=== PATIENT | male | born 1955 | race Caucasian/White ===

== ENCOUNTER 2023-01-22 08:35 | Inpatient (IN) | payer OTHER ==
[2023-01-22] MEDS ORDERED: Midazolam In 0.9 % NaCl/PF 100 MG in Premix Bag 1 BAG IVPB SCH ×2 (09:00→10:45)
[2023-01-22] MEDS ORDERED: NOREPINEPHRINE 8 MG/250 ML-D5W 250 ML IVPB PRN (09:00)
[2023-01-22 09:02] LABS: #Basophils 0.1 10x3/uL (0.0-0.2); #Monocytes 0.4 10x3/uL (0.0-1.1); #Neutrophils 15.2 10x3/uL (1.5-8.4); %Basophils 0.6 % (0.0-2.0); %Eosinophils 0.2 % (0.0-6.0); %Lymphocytes 3.9 % (18.0-47.0); %Monocytes 2.2 % (0.0-10.0); %Neutrophils 91.1 % (40.0-75.0); Hemoglobin 11.3 g/dL (13.5-17.5); Mean Corpuscular HGB CONC 26.8 g/dL (32.0-36.0); Mean Corpuscular Hemoglobin 22.2 pg (27.0-33.0); Mean Corpuscular Volume 82.7 fl (81.2-95.1); Mean Platelet Volume 10.1 fl (7.4-10.4); Platelet Count 340 10x3/uL (150-450); White Blood Cell (WBC) Count 16.7 10x3/uL (3.5-10.5)
[2023-01-22 09:12] LABS: INR-International Normal Ratio 1.7; PTT 33.6 sec (22.0-33.0); Prothrombin Time 17.8 sec (9.5-12.1)
[2023-01-22 09:18] LABS: ALT (SGPT) Less than 7 U/L (8-55); AST (SGOT) 16 U/L (5-34); Alkaline Phosphatase 98 U/L (40-110); Anion Gap 13 mmol/L (10-20); BUN (Urea Nitrogen) 31 mg/dL (8.4-25.7); Bilirubin, Total 0.4 mg/dL (0.2-1.2); Calc. Creatinine Clearance 0 mL/min (70-130); Calcium 8.6 mg/dL (7.8-10.44); Carbon Dioxide 28 mmol/L (23-31); Chloride 106 mmol/L (98-107); Estimated GFR 23; Globulin 3.1 g/dL (2.4-3.5); Glucose 125 mg/dL (80-115); Potassium 5.9 mmol/L (3.5-5.1); Protein, Total 7.1 g/dL (5.8-8.1); Sodium 141 mmol/L (136-145)
[2023-01-22 09:31] LABS: ALV-art Gradient 577.125 mmHg (0-20); Actual Bicarbonate (HCO3a) 25.1 mEq/L (22-28); Base Excess (BEa) -1.9 mEq/L (-2.0 to +3.0); CO2 Tension 52.7 mmHg (35.0-45.0); Calcium, Ionized (arterial) 1.11 mmol/L (1.12-1.30); Carboxyhemoglobin (COHb) 1.2 gm% (0.0-3.0); Hematocrit-ABG 33 % (42.0-52.0); Hemoglobin (Hb) 11.2 g/dL (14.0-18.0); Potassium - ABG Lab 5.58 mmol/L (3.70-5.30); Puncture Site LRA; pH, Arterial 7.295 (7.35-7.45)
[2023-01-22 09:42] LABS: Hypochromia SLIGHT = 6-15 cells (100X) (0-5/hpf); Ovalocytes SLIGHT = 2-5 cells (100X) (0-1/hpf); Polychromasia SLIGHT = 2-3 cells (100X) (0-2/hpf)
[2023-01-22 09:43] LABS: Platelet Adequacy Comment Appears Adequate
[2023-01-22] MEDS ORDERED: DISCONTINUE PREVIOUS NARCOTIC PAIN MEDICATIONS AND BENZODIAZEPINES FS SCH (10:15)
[2023-01-22] MEDS ORDERED: Morphine 2 MG/ML VIAL SLOW IVP PRN (10:15)
[2023-01-22] MEDS ORDERED: Propofol 1,000 MG/100 ML VIAL IV PRN (10:15)
[2023-01-22] MEDS ORDERED: Propofol BOLUS 1,000 MG/100 ML VIAL IV PRN (10:15)
[2023-01-22] MEDS ORDERED: Fentanyl BOLUS 250 ML IVPB PRN (10:15)
[2023-01-22] MEDS ORDERED: Glucagon 1 MG/ML KIT IM PRN (10:30)
[2023-01-22] MEDS ORDERED: Piperacillin/Tazobactam 3.375 GM in Sodium Chloride 0.9% 100 ML IVPB SCH (10:30)
[2023-01-22] MEDS ORDERED: Dextrose 5% in Water 1,000 ML IV PRN (10:30)
[2023-01-22] MEDS: Ipratropium Bromide 2.5 ml Neb NEB SCH ×4 (10:30→23:00)
[2023-01-22] MEDS ORDERED: Dextrose 50% Abboject 50 ML SYRINGE IVP PRN (10:30)
[2023-01-22] MEDS ORDERED: LOKELMA 10 GM PACKET PO SCH (11:30)
[2023-01-22] MEDS: methylPREDNISolone Sod Succ 40 MG VIAL IVP SCH ×2 (11:41→17:27)
[2023-01-22] MEDS: Bumetanide 1 MG/4 ML VIAL IVP SCH (14:21)
[2023-01-22] MEDS: Piperacillin/Tazobactam 3.375 GM in Sodium Chloride 0.9% 100 ML IVPB SCH ×2 (14:23→22:02)
[2023-01-22] MEDS: Warfarin Sodium 10 MG TAB PO SCH (16:43)
[2023-01-22] MEDS: HumaLOG 300 UNITS/3 ML VIAL SC PRN (22:01)
[2023-01-23] MEDS: methylPREDNISolone Sod Succ 40 MG VIAL IVP SCH ×4 (00:04→18:34)
[2023-01-23] MEDS: FENTANYL 2,000MCG/100-0.9%NACL 100 ML IVPB SCH (01:34)
[2023-01-23 03:31] LABS: INR-International Normal Ratio 1.8; Prothrombin Time 19.3 sec (9.5-12.1)
[2023-01-23 03:38] LABS: ALT (SGPT) Less than 7 U/L (8-55); AST (SGOT) 11 U/L (5-34); Albumin 3.1 g/dL (3.4-4.8); Alkaline Phosphatase 70 U/L (40-110); Anion Gap 14 mmol/L (10-20); BUN (Urea Nitrogen) 44 mg/dL (8.4-25.7); Bilirubin, Total 0.3 mg/dL (0.2-1.2); Calc. Creatinine Clearance 41 mL/min (70-130); Calcium 8.5 mg/dL (7.8-10.44); Carbon Dioxide 26 mmol/L (23-31); Chloride 105 mmol/L (98-107); Estimated GFR 18; Globulin 2.5 g/dL (2.4-3.5); Glucose 156 mg/dL (80-115); Potassium 5.4 mmol/L (3.5-5.1); Protein, Total 5.6 g/dL (5.8-8.1); Sodium 140 mmol/L (136-145)
[2023-01-23] MEDS: Ipratropium Bromide 2.5 ml Neb NEB SCH ×6 (03:50→23:20)
[2023-01-23 04:27] LABS: Actual Bicarbonate (HCO3a) 26.4 mEq/L (22-28); Base Excess (BEa) -0.1 mEq/L (-2.0 to +3.0); CO2 Tension 51.8 mmHg (35.0-45.0); Calcium, Ionized (arterial) 1.12 mmol/L (1.12-1.30); Carboxyhemoglobin (COHb) 0.2 gm% (0.0-3.0); Hematocrit-ABG 31 % (42.0-52.0); Hemoglobin (Hb) 10.4 g/dL (14.0-18.0); O2 Tension (PaO2), arterial 63.2 mmHg (> 80.0); Potassium - ABG Lab 5.36 mmol/L (3.70-5.30); Puncture Site RRA; pH, Arterial 7.325 (7.35-7.45)
[2023-01-23 04:32] LABS: #Eosinphils 0.2 10x3/uL (0.0-0.5); #Monocytes 0.2 10x3/uL (0.0-1.1); #Neutrophils 6.4 10x3/uL (1.5-8.4); %Eosinophils 2.3 % (0.0-6.0); %Lymphocytes 4.6 % (18.0-47.0); %Monocytes 2.5 % (0.0-10.0); Hemoglobin 9.3 g/dL (13.5-17.5); Mean Corpuscular HGB CONC 28.1 g/dL (32.0-36.0); Mean Corpuscular Volume 78.3 fl (81.2-95.1); Mean Platelet Volume 10.2 fl (7.4-10.4); Platelet Count 235 10x3/uL (150-450); RBC Distribution Width 18.2 % (11.5-14.5); Red Blood Cell (RBC) Count 4.23 10x6/uL (4.32-5.72); White Blood Cell (WBC) Count 7.1 10x3/uL (3.5-10.5)
[2023-01-23] MEDS ORDERED: Calcium Gluconate 4.6 MEQ in Sodium Chloride 0.9% 100 ML IVPB SCH (05:15)
[2023-01-23] MEDS: Piperacillin/Tazobactam 3.375 GM in Sodium Chloride 0.9% 100 ML IVPB SCH ×2 (06:01→15:03)
[2023-01-23] MEDS: Bumetanide 1 MG/4 ML VIAL IVP SCH ×2 (06:08→13:40)
[2023-01-23 10:10] LABS: Anion Gap 15 mmol/L (10-20); BUN (Urea Nitrogen) 49 mg/dL (8.4-25.7); Calc. Creatinine Clearance 40 mL/min (70-130); Calcium 8.8 mg/dL (7.8-10.44); Carbon Dioxide 25 mmol/L (23-31); Chloride 105 mmol/L (98-107); Estimated GFR 17; Glucose 154 mg/dL (80-115); Potassium 5.3 mmol/L (3.5-5.1); Sodium 140 mmol/L (136-145)
[2023-01-23] MEDS: Albumin 25% 25 GM/100 ML BOT IVPB SCH ×2 (13:40→20:12)
[2023-01-23] MEDS: Metoprolol Tartrate 5 MG/5 ML VIAL IVP PRN (15:02)
[2023-01-23 15:48] LABS: Magnesium 2.3 mg/dL (1.6-2.6)
[2023-01-23] MEDS: dilTIAZem 125 MG in Sodium Chloride 0.9% 100 ML IVPB SCH (16:15)
[2023-01-23 16:17] LABS: Anion Gap 15 mmol/L (10-20); BUN (Urea Nitrogen) 55 mg/dL (8.4-25.7); Calc. Creatinine Clearance 37 mL/min (70-130); Calcium 8.6 mg/dL (7.8-10.44); Carbon Dioxide 26 mmol/L (23-31); Chloride 104 mmol/L (98-107); Estimated GFR 15; Glucose 166 mg/dL (80-115); Sodium 140 mmol/L (136-145)
[2023-01-23] MEDS ORDERED: Acetaminophen 500 MG TAB PER TUBE SCH (17:15)
[2023-01-23] MEDS ORDERED: VANCOMYCIN 2 GRAM/400 ML BAG 2 GM in Premix Bag 1 BAG IVPB SCH (17:30)
[2023-01-23] MEDS ORDERED: Vancomycin HCl 1 GM in Sodium Chloride 0.9% 250 ML 250 ML IVPB SCH (17:30)
[2023-01-23] MEDS ORDERED: Vancomycin Dose by Levels Sliding Scale (Wt > 99) FS SCH (17:30)
[2023-01-23] MEDS: Warfarin Sodium 10 MG TAB PO SCH (17:31)
[2023-01-23] MEDS: HumaLOG 300 UNITS/3 ML VIAL SC PRN ×2 (17:32→22:49)
[2023-01-23] MEDS ORDERED: Meropenem 1 GM in Sodium Chloride 0.9% 100 ML IVPB SCH ×2 (20:00→22:00)
[2023-01-23] MEDS ORDERED: Meropenem 1 GM VIAL ONE (20:12)
[2023-01-24] MEDS: methylPREDNISolone Sod Succ 40 MG VIAL IVP SCH ×4 (00:59→17:22)
[2023-01-24] MEDS: Albumin 25% 25 GM/100 ML BOT IVPB SCH ×4 (01:00→17:22)
[2023-01-24] MEDS: Ipratropium Bromide 2.5 ml Neb NEB SCH ×6 (03:15→22:25)
[2023-01-24] MEDS: FENTANYL 2,000MCG/100-0.9%NACL 100 ML IVPB SCH (03:25)
[2023-01-24 04:03] LABS: #Monocytes 0.2 10x3/uL (0.0-1.1); #Neutrophils 7.3 10x3/uL (1.5-8.4); %Lymphocytes 2.8 % (18.0-47.0); %Monocytes 2.3 % (0.0-10.0); %Neutrophils 94.5 % (40.0-75.0); Mean Corpuscular HGB CONC 29.3 g/dL (32.0-36.0); Mean Corpuscular Hemoglobin 22.2 pg (27.0-33.0); Mean Corpuscular Volume 75.8 fl (81.2-95.1); Platelet Count 239 10x3/uL (150-450); RBC Distribution Width 18.4 % (11.5-14.5); Red Blood Cell (RBC) Count 4.05 10x6/uL (4.32-5.72); White Blood Cell (WBC) Count 7.8 10x3/uL (3.5-10.5)
[2023-01-24 04:08] LABS: INR-International Normal Ratio 3.5; Prothrombin Time 37.1 sec (9.5-12.1)
[2023-01-24 04:11] LABS: Anion Gap 19 mmol/L (10-20); BUN (Urea Nitrogen) 61 mg/dL (8.4-25.7); Calc. Creatinine Clearance 34 mL/min (70-130); Calcium 8.8 mg/dL (7.8-10.44); Carbon Dioxide 23 mmol/L (23-31); Chloride 107 mmol/L (98-107); Estimated GFR 14; Glucose 163 mg/dL (80-115); Iron 8 ug/dL (65-175); Potassium 4.9 mmol/L (3.5-5.1); Sodium 144 mmol/L (136-145)
[2023-01-24] MEDS: Meropenem 500 MG in Sodium Chloride 0.9% 100 ML IVPB SCH ×2 (04:17→16:39)
[2023-01-24] MEDS: Bumetanide 1 MG/4 ML VIAL IVP SCH ×2 (05:29→13:21)
[2023-01-24] MEDS ORDERED: Dexmedetomidine In 0.9 % NaCl 100 ML ONE (08:33)
[2023-01-24] MEDS ORDERED: Pantoprazole 40 MG VIAL ONE (08:33)
[2023-01-24] MEDS: Pantoprazole 40 MG VIAL IVP SCH (08:35)
[2023-01-24] MEDS: Dexmedetomidine In 0.9 % NaCl 400 MCG in Premix Bag 1 BAG IVPB SCH ×4 (08:35→22:37)
[2023-01-24] MEDS: Metoprolol Tartrate 5 MG/5 ML VIAL IVP PRN ×2 (13:21→20:53)
[2023-01-24] MEDS ORDERED: Iron, Sodium Ferric Gluconate 250 MG in Sodium Chloride 0.9% 250 ML 250 ML IVPB SCH (14:15)
[2023-01-24] MEDS ORDERED: Warfarin Sodium 5 MG TAB PO SCH (17:00)
[2023-01-24 20:58] LABS: Actual Bicarbonate (HCO3a) 26.5 mEq/L (22-28); Base Excess (BEa) 0.1 mEq/L (-2.0 to +3.0); CO2 Tension 51.2 mmHg (35.0-45.0); Calcium, Ionized (arterial) 1.11 mmol/L (1.12-1.30); Carboxyhemoglobin (COHb) 0.2 gm% (0.0-3.0); Hematocrit-ABG 33 % (42.0-52.0); Hemoglobin (Hb) 11.1 g/dL (14.0-18.0); O2 Tension (PaO2), arterial 60.8 mmHg (> 80.0); Potassium - ABG Lab 4.98 mmol/L (3.70-5.30); Puncture Site RRA; pH, Arterial 7.332 (7.35-7.45)
[2023-01-24] MEDS: HumaLOG 300 UNITS/3 ML VIAL SC PRN (22:43)
[2023-01-24] MEDS ORDERED: Labetalol HCl 100 MG/20 ML VIAL ONE (23:20)
[2023-01-24] MEDS ORDERED: Nitroglycerin 2% Ointment 1 INCH/1 GM Packet ONE (23:20)
[2023-01-24] MEDS ORDERED: Nitroglycerin 2% Ointment 1 INCH/1 GM Packet TOP SCH (23:30)
[2023-01-24] MEDS ORDERED: Labetalol HCl 100 MG/20 ML VIAL SLOW IVP SCH (23:30)
[2023-01-25] MEDS: methylPREDNISolone Sod Succ 40 MG VIAL IVP SCH ×5 (00:31→23:19)
[2023-01-25] MEDS: Albumin 25% 25 GM/100 ML BOT IVPB SCH ×2 (00:31→05:38)
[2023-01-25] MEDS: Ipratropium Bromide 2.5 ml Neb NEB SCH ×6 (02:50→23:27)
[2023-01-25] MEDS: Dexmedetomidine In 0.9 % NaCl 400 MCG in Premix Bag 1 BAG IVPB SCH ×7 (03:00→21:26)
[2023-01-25] MEDS: Labetalol HCl 100 MG/20 ML VIAL SLOW IVP PRN (03:39)
[2023-01-25] MEDS: Lorazepam 2 MG/ML VIAL SLOW IVP PRN ×3 (03:39→23:11)
[2023-01-25 05:02] LABS: Anion Gap 17 mmol/L (10-20); BUN (Urea Nitrogen) 75 mg/dL (8.4-25.7); Calc. Creatinine Clearance 36 mL/min (70-130); Calcium 8.8 mg/dL (7.8-10.44); Carbon Dioxide 27 mmol/L (23-31); Chloride 106 mmol/L (98-107); Estimated GFR 16; Glucose 184 mg/dL (80-115); Potassium 4.8 mmol/L (3.5-5.1); Sodium 145 mmol/L (136-145)
[2023-01-25 05:08] LABS: INR-International Normal Ratio 5.2; Prothrombin Time 54.7 sec (9.5-12.1)
[2023-01-25 05:09] LABS: Actual Bicarbonate (HCO3a) 25.2 mEq/L (22-28); Base Excess (BEa) -0.5 mEq/L (-2.0 to +3.0); CO2 Tension 45.8 mmHg (35.0-45.0); Carboxyhemoglobin (COHb) 0.1 gm% (0.0-3.0); Hematocrit-ABG 33 % (42.0-52.0); Hemoglobin (Hb) 11.3 g/dL (14.0-18.0); O2 Tension (PaO2), arterial 85.9 mmHg (> 80.0); Potassium - ABG Lab 4.71 mmol/L (3.70-5.30); Puncture Site RRA; pH, Arterial 7.359 (7.35-7.45)
[2023-01-25 05:09] LABS: #Monocytes 0.2 10x3/uL (0.0-1.1); #Neutrophils 7.7 10x3/uL (1.5-8.4); %Basophils 0.1 % (0.0-2.0); %Lymphocytes 1.6 % (18.0-47.0); %Monocytes 2.6 % (0.0-10.0); %Neutrophils 94.6 % (40.0-75.0); Hemoglobin 10.2 g/dL (13.5-17.5); Mean Corpuscular HGB CONC 28.5 g/dL (32.0-36.0); Mean Corpuscular Hemoglobin 22.1 pg (27.0-33.0); Mean Corpuscular Volume 77.7 fl (81.2-95.1); Mean Platelet Volume 10.4 fl (7.4-10.4); Platelet Count 240 10x3/uL (150-450); RBC Distribution Width 18.6 % (11.5-14.5); Red Blood Cell (RBC) Count 4.61 10x6/uL (4.32-5.72); White Blood Cell (WBC) Count 8.1 10x3/uL (3.5-10.5)
[2023-01-25] MEDS ORDERED: cloNIDine 0.3mg/24 Hour PATCH TD SCH (05:15)
[2023-01-25] MEDS: Bumetanide 1 MG/4 ML VIAL IVP SCH ×2 (05:38→13:58)
[2023-01-25] MEDS: Meropenem 500 MG in Sodium Chloride 0.9% 100 ML IVPB SCH ×2 (05:38→16:36)
[2023-01-25] MEDS ORDERED: Labetalol HCl 100 MG/20 ML VIAL SLOW IVP SCH (07:15)
[2023-01-25] MEDS: dilTIAZem 125 MG in Sodium Chloride 0.9% 100 ML IVPB SCH (07:17)
[2023-01-25] MEDS: niCARdipine 25 MG in Sodium Chloride 0.9% 250 ML 250 ML IVPB SCH ×5 (08:42→21:49)
[2023-01-25] MEDS: Pantoprazole 40 MG VIAL IVP SCH (10:36)
[2023-01-25] MEDS ORDERED: Metoprolol Tartrate 5 MG/5 ML VIAL IVP SCH (21:00)
[2023-01-25] MEDS: HumaLOG 300 UNITS/3 ML VIAL SC PRN (22:37)
[2023-01-26] MEDS: Dexmedetomidine In 0.9 % NaCl 400 MCG in Premix Bag 1 BAG IVPB SCH ×4 (00:14→08:44)
[2023-01-26] MEDS: niCARdipine 25 MG in Sodium Chloride 0.9% 250 ML 250 ML IVPB SCH ×7 (02:36→16:11)
[2023-01-26 03:47] LABS: Actual Bicarbonate (HCO3a) 28.6 mEq/L (22-28); Base Excess (BEa) 2.5 mEq/L (-2.0 to +3.0); CO2 Tension 50.9 mmHg (35.0-45.0); Calcium, Ionized (arterial) 1.13 mmol/L (1.12-1.30); Carboxyhemoglobin (COHb) 0.2 gm% (0.0-3.0); Hematocrit-ABG 32 % (42.0-52.0); O2 Tension (PaO2), arterial 82.5 mmHg (> 80.0); Potassium - ABG Lab 4.27 mmol/L (3.70-5.30); Puncture Site RRA; pH, Arterial 7.367 (7.35-7.45)
[2023-01-26 03:50] LABS: ALV-art Gradient 174.725 mmHg (0-20)
[2023-01-26 03:54] LABS: #Monocytes 0.1 10x3/uL (0.0-1.1); #Neutrophils 4.1 10x3/uL (1.5-8.4); %Lymphocytes 4.1 % (18.0-47.0); %Monocytes 2.7 % (0.0-10.0); %Neutrophils 92.5 % (40.0-75.0); Hemoglobin 10.2 g/dL (13.5-17.5); Mean Corpuscular HGB CONC 27.9 g/dL (32.0-36.0); Mean Corpuscular Hemoglobin 21.7 pg (27.0-33.0); Mean Corpuscular Volume 77.7 fl (81.2-95.1); Mean Platelet Volume 10.2 fl (7.4-10.4); Platelet Count 224 10x3/uL (150-450); RBC Distribution Width 18.3 % (11.5-14.5); Red Blood Cell (RBC) Count 4.71 10x6/uL (4.32-5.72); White Blood Cell (WBC) Count 4.4 10x3/uL (3.5-10.5)
[2023-01-26] MEDS: Ipratropium Bromide 2.5 ml Neb NEB SCH ×6 (03:56→22:30)
[2023-01-26 04:05] LABS: Anion Gap 19 mmol/L (10-20); BUN (Urea Nitrogen) 85 mg/dL (8.4-25.7); Calc. Creatinine Clearance 42 mL/min (70-130); Calcium 8.5 mg/dL (7.8-10.44); Carbon Dioxide 24 mmol/L (23-31); Chloride 110 mmol/L (98-107); Estimated GFR 19; Glucose 203 mg/dL (80-115); Potassium 4.3 mmol/L (3.5-5.1); Sodium 149 mmol/L (136-145)
[2023-01-26 04:15] LABS: INR-International Normal Ratio 6.2
[2023-01-26] MEDS: Meropenem 500 MG in Sodium Chloride 0.9% 100 ML IVPB SCH ×2 (04:26→15:47)
[2023-01-26 05:15] LABS: Anisocytosis SLIGHT = 6-15 cells (100X) (0-5/hpf)
[2023-01-26 05:16] LABS: Elliptocytes SLIGHT = 2-5 cells (100X) (0-1/hpf); Microcytosis SLIGHT = 6-15 cells (100X) (0-5/hpf)
[2023-01-26 05:17] LABS: Platelet Adequacy Comment Appears Adequate
[2023-01-26] MEDS: methylPREDNISolone Sod Succ 40 MG VIAL IVP SCH ×2 (05:31→20:30)
[2023-01-26] MEDS: Bumetanide 1 MG/4 ML VIAL IVP SCH (05:31)
[2023-01-26] MEDS: HumaLOG 300 UNITS/3 ML VIAL SC PRN ×3 (06:11→17:45)
[2023-01-26] MEDS: Pantoprazole 40 MG VIAL IVP SCH (08:15)
[2023-01-26] MEDS ORDERED: Phytonadione 10 MG/ML AMP SC SCH (09:15)
[2023-01-26] MEDS: Dextrose 5% in Water 1,000 ML IV SCH (09:40)
[2023-01-26] MEDS ORDERED: Phytonadione 10 MG in Sodium Chloride 0.9% 50 ML IVPB SCH (10:00)
[2023-01-26] MEDS ORDERED: Carvedilol 12.5 MG TAB PO SCH (11:00)
[2023-01-26] MEDS ORDERED: Amlodipine 10 MG TAB PO SCH (11:00)
[2023-01-26] MEDS: Carvedilol 12.5 MG TAB PO SCH (15:48)
[2023-01-26] MEDS ORDERED: Morphine 2 MG/ML VIAL SLOW IVP PRN (20:52)
[2023-01-26] MEDS: dilTIAZem 125 MG in Sodium Chloride 0.9% 100 ML IVPB SCH (23:51)
[2023-01-27] MEDS: Ipratropium Bromide 2.5 ml Neb NEB SCH ×6 (02:30→22:00)
[2023-01-27] MEDS ORDERED: Lorazepam 2 MG/ML VIAL SLOW IVP SCH (02:45)
[2023-01-27] MEDS: Labetalol HCl 100 MG/20 ML VIAL SLOW IVP PRN ×2 (03:06→23:48)
[2023-01-27 04:18] LABS: #Monocytes 0.3 10x3/uL (0.0-1.1); %Basophils 0.1 % (0.0-2.0); %Lymphocytes 2.6 % (18.0-47.0); %Monocytes 4.1 % (0.0-10.0); %Neutrophils 92.7 % (40.0-75.0); Hemoglobin 10.7 g/dL (13.5-17.5); Mean Corpuscular HGB CONC 28.1 g/dL (32.0-36.0); Mean Corpuscular Hemoglobin 21.8 pg (27.0-33.0); Mean Corpuscular Volume 77.6 fl (81.2-95.1); Platelet Count 223 10x3/uL (150-450); RBC Distribution Width 18.5 % (11.5-14.5); Red Blood Cell (RBC) Count 4.91 10x6/uL (4.32-5.72); White Blood Cell (WBC) Count 7.6 10x3/uL (3.5-10.5)
[2023-01-27] MEDS: Meropenem 500 MG in Sodium Chloride 0.9% 100 ML IVPB SCH (04:21)
[2023-01-27 04:28] LABS: INR-International Normal Ratio 1.3; Prothrombin Time 14.2 sec (9.5-12.1)
[2023-01-27 04:35] LABS: Anion Gap 18 mmol/L (10-20); BUN (Urea Nitrogen) 89 mg/dL (8.4-25.7); Calc. Creatinine Clearance 51 mL/min (70-130); Calcium 8.8 mg/dL (7.8-10.44); Carbon Dioxide 25 mmol/L (23-31); Chloride 112 mmol/L (98-107); Estimated GFR 23; Glucose 177 mg/dL (80-115); Potassium 3.6 mmol/L (3.5-5.1)
[2023-01-27 04:37] LABS: Platelet Adequacy Comment Appears Adequate; Sodium 151 mmol/L (136-145)
[2023-01-27] MEDS: Dextrose 5% in Water 1,000 ML IV SCH ×3 (04:38→17:58)
[2023-01-27 04:39] LABS: Anisocytosis SLIGHT = 6-15 cells (100X) (0-5/hpf); Microcytosis SLIGHT = 6-15 cells (100X) (0-5/hpf); Ovalocytes SLIGHT = 2-5 cells (100X) (0-1/hpf)
[2023-01-27] MEDS: Carvedilol 12.5 MG TAB PO SCH ×2 (08:10→16:50)
[2023-01-27] MEDS: Amlodipine 10 MG TAB PO SCH (08:10)
[2023-01-27] MEDS: methylPREDNISolone Sod Succ 40 MG VIAL IVP SCH ×2 (08:11→20:07)
[2023-01-27] MEDS: Pantoprazole 40 MG VIAL IVP SCH (08:11)
[2023-01-27 10:28] LABS: Anion Gap 15 mmol/L (10-20); BUN (Urea Nitrogen) 85 mg/dL (8.4-25.7); Calc. Creatinine Clearance 53 mL/min (70-130); Calcium 8.9 mg/dL (7.8-10.44); Carbon Dioxide 29 mmol/L (23-31); Chloride 110 mmol/L (98-107); Estimated GFR 24; Glucose 179 mg/dL (80-115); Potassium 4.3 mmol/L (3.5-5.1); Sodium 150 mmol/L (136-145)
[2023-01-27] MEDS: HumaLOG 300 UNITS/3 ML VIAL SC PRN ×2 (12:17→18:23)
[2023-01-27] MEDS: Meropenem 1 GM in Sodium Chloride 0.9% 100 ML IVPB SCH (15:58)
[2023-01-27] MEDS ORDERED: Warfarin Sodium 5 MG TAB PO SCH (17:00)
[2023-01-28] MEDS: Ipratropium Bromide 2.5 ml Neb NEB SCH ×6 (02:15→22:05)
[2023-01-28] MEDS: Meropenem 1 GM in Sodium Chloride 0.9% 100 ML IVPB SCH ×2 (03:22→15:22)
[2023-01-28 04:20] LABS: #Monocytes 0.2 10x3/uL (0.0-1.1); #Neutrophils 5.3 10x3/uL (1.5-8.4); %Lymphocytes 2.3 % (18.0-47.0); %Monocytes 2.7 % (0.0-10.0); %Neutrophils 94.3 % (40.0-75.0); Hemoglobin 9.8 g/dL (13.5-17.5); Mean Corpuscular HGB CONC 28.2 g/dL (32.0-36.0); Mean Corpuscular Hemoglobin 22.1 pg (27.0-33.0); Mean Corpuscular Volume 78.3 fl (81.2-95.1); Mean Platelet Volume 10.7 fl (7.4-10.4); Platelet Count 197 10x3/uL (150-450); RBC Distribution Width 18.3 % (11.5-14.5); Red Blood Cell (RBC) Count 4.43 10x6/uL (4.32-5.72); White Blood Cell (WBC) Count 5.6 10x3/uL (3.5-10.5)
[2023-01-28 04:25] LABS: Anion Gap 15 mmol/L (10-20); BUN (Urea Nitrogen) 65 mg/dL (8.4-25.7); Calc. Creatinine Clearance 65 mL/min (70-130); Calcium 8.1 mg/dL (7.8-10.44); Carbon Dioxide 27 mmol/L (23-31); Chloride 98 mmol/L (98-107); Estimated GFR 31; Potassium 3.9 mmol/L (3.5-5.1); Sodium 136 mmol/L (136-145)
[2023-01-28 04:27] LABS: Glucose 538 mg/dL (80-115)
[2023-01-28 04:29] LABS: INR-International Normal Ratio 1.2; Prothrombin Time 13.1 sec (9.5-12.1)
[2023-01-28 04:57] LABS: Anisocytosis SLIGHT = 6-15 cells (100X) (0-5/hpf); Elliptocytes SLIGHT = 2-5 cells (100X) (0-1/hpf); Hypochromia SLIGHT = 6-15 cells (100X) (0-5/hpf); Microcytosis SLIGHT = 6-15 cells (100X) (0-5/hpf)
[2023-01-28 04:58] LABS: Platelet Adequacy Comment Appears Adequate
[2023-01-28] MEDS: methylPREDNISolone Sod Succ 40 MG VIAL IVP SCH ×2 (07:35→20:44)
[2023-01-28] MEDS: Carvedilol 12.5 MG TAB PO SCH ×2 (07:35→16:51)
[2023-01-28] MEDS: Amlodipine 10 MG TAB PO SCH (07:35)
[2023-01-28] MEDS: Pantoprazole 40 MG VIAL IVP SCH (07:35)
[2023-01-28] MEDS ORDERED: NIFEdipine XL 90 MG TAB PO SCH (11:00)
[2023-01-28] MEDS: hydrALAZINE 25 MG TAB PO SCH ×2 (15:23→20:44)
[2023-01-28] MEDS: Warfarin Sodium 10 MG TAB PO SCH (17:02)
[2023-01-28] MEDS: HumaLOG 300 UNITS/3 ML VIAL SC PRN (18:36)
[2023-01-29] MEDS: HumaLOG 300 UNITS/3 ML VIAL SC PRN ×3 (00:01→18:35)
[2023-01-29] MEDS: Ipratropium Bromide 2.5 ml Neb NEB SCH ×2 (01:15→07:00)
[2023-01-29 03:51] LABS: #Monocytes 0.2 10x3/uL (0.0-1.1); %Basophils 0.2 % (0.0-2.0); %Lymphocytes 2.5 % (18.0-47.0); %Monocytes 3.6 % (0.0-10.0); %Neutrophils 93.1 % (40.0-75.0); Hemoglobin 11.2 g/dL (13.5-17.5); Mean Corpuscular HGB CONC 28.9 g/dL (32.0-36.0); Mean Corpuscular Hemoglobin 22.3 pg (27.0-33.0); Mean Corpuscular Volume 77.1 fl (81.2-95.1); Mean Platelet Volume 10.5 fl (7.4-10.4); Platelet Count 190 10x3/uL (150-450); RBC Distribution Width 18.8 % (11.5-14.5); Red Blood Cell (RBC) Count 5.03 10x6/uL (4.32-5.72); White Blood Cell (WBC) Count 6.5 10x3/uL (3.5-10.5)
[2023-01-29 04:02] LABS: INR-International Normal Ratio 1.1; Prothrombin Time 12.3 sec (9.5-12.1)
[2023-01-29 04:05] LABS: Anion Gap 17 mmol/L (10-20); BUN (Urea Nitrogen) 70 mg/dL (8.4-25.7); Calc. Creatinine Clearance 67 mL/min (70-130); Calcium 8.8 mg/dL (7.8-10.44); Carbon Dioxide 28 mmol/L (23-31); Chloride 107 mmol/L (98-107); Estimated GFR 33; Glucose 157 mg/dL (80-115); Sodium 148 mmol/L (136-145)
[2023-01-29 04:13] LABS: Anisocytosis SLIGHT = 6-15 cells (100X) (0-5/hpf); Hypochromia SLIGHT = 6-15 cells (100X) (0-5/hpf); Microcytosis SLIGHT = 6-15 cells (100X) (0-5/hpf); Platelet Adequacy Comment Appears Adequate
[2023-01-29] MEDS: Meropenem 1 GM in Sodium Chloride 0.9% 100 ML IVPB SCH ×2 (04:53→16:00)
[2023-01-29] MEDS: methylPREDNISolone Sod Succ 40 MG VIAL IVP SCH ×2 (08:11→20:47)
[2023-01-29] MEDS: hydrALAZINE 25 MG TAB PO SCH ×3 (08:11→20:44)
[2023-01-29] MEDS: Pantoprazole 40 MG VIAL IVP SCH (08:11)
[2023-01-29] MEDS: Carvedilol 12.5 MG TAB PO SCH ×2 (08:11→17:10)
[2023-01-29] MEDS ORDERED: NIFEdipine XL 60 MG TAB PO SCH (09:00)
[2023-01-29] MEDS ORDERED: hydrALAZINE 25 MG TAB PO SCH (09:45)
[2023-01-29 10:18] LABS: Magnesium 2.4 mg/dL (1.6-2.6)
[2023-01-29] MEDS: Labetalol HCl 100 MG/20 ML VIAL SLOW IVP PRN ×2 (11:12→18:35)
[2023-01-29] MEDS: Ipratropium/Albuterol 3 ML NEB NEB SCH ×2 (13:30→19:45)
[2023-01-29] MEDS ORDERED: NIFEdipine XL 30 MG TAB PO SCH (17:00)
[2023-01-29] MEDS: Warfarin Sodium 10 MG TAB PO SCH (17:10)
[2023-01-29] MEDS ORDERED: Lorazepam 2 MG/ML VIAL SLOW IVP SCH (23:45)
[2023-01-30] MEDS: Ipratropium/Albuterol 3 ML NEB NEB SCH ×4 (02:10→20:20)
[2023-01-30] MEDS: Meropenem 1 GM in Sodium Chloride 0.9% 100 ML IVPB SCH ×2 (03:35→20:12)
[2023-01-30 04:02] LABS: #Monocytes 0.3 10x3/uL (0.0-1.1); #Neutrophils 6.8 10x3/uL (1.5-8.4); %Basophils 0.1 % (0.0-2.0); %Lymphocytes 2.8 % (18.0-47.0); %Monocytes 3.5 % (0.0-10.0); %Neutrophils 91.8 % (40.0-75.0); Hemoglobin 10.8 g/dL (13.5-17.5); Mean Corpuscular HGB CONC 28.2 g/dL (32.0-36.0); Mean Corpuscular Hemoglobin 22.2 pg (27.0-33.0); Mean Corpuscular Volume 78.8 fl (81.2-95.1); Mean Platelet Volume 10.7 fl (7.4-10.4); Platelet Count 179 10x3/uL (150-450); RBC Distribution Width 19.1 % (11.5-14.5); Red Blood Cell (RBC) Count 4.86 10x6/uL (4.32-5.72); White Blood Cell (WBC) Count 7.4 10x3/uL (3.5-10.5)
[2023-01-30 04:09] LABS: INR-International Normal Ratio 1.3; Prothrombin Time 13.7 sec (9.5-12.1)
[2023-01-30 04:16] LABS: Anion Gap 19 mmol/L (10-20); BUN (Urea Nitrogen) 65 mg/dL (8.4-25.7); Calc. Creatinine Clearance 71 mL/min (70-130); Calcium 8.8 mg/dL (7.8-10.44); Carbon Dioxide 28 mmol/L (23-31); Chloride 105 mmol/L (98-107); Estimated GFR 35; Glucose 206 mg/dL (80-115); Potassium 3.8 mmol/L (3.5-5.1); Sodium 148 mmol/L (136-145)
[2023-01-30 04:22] LABS: Anisocytosis SLIGHT = 6-15 cells (100X) (0-5/hpf); Hypochromia SLIGHT = 6-15 cells (100X) (0-5/hpf); Microcytosis SLIGHT = 6-15 cells (100X) (0-5/hpf); Ovalocytes SLIGHT = 2-5 cells (100X) (0-1/hpf); Platelet Adequacy Comment Appears Adequate
[2023-01-30] MEDS: methylPREDNISolone Sod Succ 40 MG VIAL IVP SCH ×2 (08:17→09:42)
[2023-01-30] MEDS: Carvedilol 12.5 MG TAB PO SCH ×2 (08:18→17:10)
[2023-01-30] MEDS: hydrALAZINE 25 MG TAB PO SCH ×3 (08:18→20:13)
[2023-01-30] MEDS: NIFEdipine XL 90 MG TAB PO SCH (08:30)
[2023-01-30] MEDS: Pantoprazole 40 MG VIAL IVP SCH (09:44)
[2023-01-30] MEDS: HumaLOG 300 UNITS/3 ML VIAL SC PRN ×2 (11:38→17:19)
[2023-01-30] MEDS ORDERED: Meropenem 1 GM in Sodium Chloride 0.9% 100 ML IVPB SCH (12:45)
[2023-01-30] MEDS: Warfarin Sodium 10 MG TAB PO SCH (17:10)
[2023-01-31] MEDS: Ipratropium/Albuterol 3 ML NEB NEB SCH ×4 (01:30→19:35)
[2023-01-31] MEDS: Meropenem 1 GM in Sodium Chloride 0.9% 100 ML IVPB SCH ×3 (03:01→19:52)
[2023-01-31 03:42] LABS: #Monocytes 0.6 10x3/uL (0.0-1.1); #Neutrophils 6.3 10x3/uL (1.5-8.4); %Basophils 0.1 % (0.0-2.0); %Lymphocytes 5.8 % (18.0-47.0); %Monocytes 7.8 % (0.0-10.0); %Neutrophils 84.7 % (40.0-75.0); Hemoglobin 10.4 g/dL (13.5-17.5); Mean Corpuscular HGB CONC 28.7 g/dL (32.0-36.0); Mean Corpuscular Hemoglobin 22.3 pg (27.0-33.0); Mean Corpuscular Volume 77.5 fl (81.2-95.1); Mean Platelet Volume 10.9 fl (7.4-10.4); Platelet Count 172 10x3/uL (150-450); RBC Distribution Width 19.3 % (11.5-14.5); Red Blood Cell (RBC) Count 4.67 10x6/uL (4.32-5.72); White Blood Cell (WBC) Count 7.5 10x3/uL (3.5-10.5)
[2023-01-31 03:58] LABS: Anion Gap 15 mmol/L (10-20); BUN (Urea Nitrogen) 62 mg/dL (8.4-25.7); Calc. Creatinine Clearance 79 mL/min (70-130); Calcium 8.4 mg/dL (7.8-10.44); Carbon Dioxide 31 mmol/L (23-31); Chloride 105 mmol/L (98-107); Estimated GFR 41; Glucose 139 mg/dL (80-115); INR-International Normal Ratio 1.5; Potassium 3.5 mmol/L (3.5-5.1); Prothrombin Time 16.2 sec (9.5-12.1); Sodium 147 mmol/L (136-145)
[2023-01-31 04:11] LABS: Anisocytosis SLIGHT = 6-15 cells (100X) (0-5/hpf); Hypochromia SLIGHT = 6-15 cells (100X) (0-5/hpf); Microcytosis SLIGHT = 6-15 cells (100X) (0-5/hpf); Ovalocytes SLIGHT = 2-5 cells (100X) (0-1/hpf); Platelet Adequacy Comment Appears Adequate; Polychromasia SLIGHT = 2-3 cells (100X) (0-2/hpf)
[2023-01-31] MEDS: Pantoprazole 40 MG VIAL IVP SCH (07:24)
[2023-01-31] MEDS: methylPREDNISolone Sod Succ 40 MG VIAL IVP SCH (07:25)
[2023-01-31] MEDS: Carvedilol 12.5 MG TAB PO SCH ×2 (07:25→16:53)
[2023-01-31] MEDS: NIFEdipine XL 90 MG TAB PO SCH (07:25)
[2023-01-31] MEDS: hydrALAZINE 25 MG TAB PO SCH ×3 (07:26→20:03)
[2023-01-31] MEDS: predniSONE 20 MG TAB PO SCH (11:30)
[2023-01-31] MEDS: HumaLOG 300 UNITS/3 ML VIAL SC PRN (16:46)
[2023-01-31] MEDS: Warfarin Sodium 10 MG TAB PO SCH (16:53)
[2023-02-01] MEDS: Ipratropium/Albuterol 3 ML NEB NEB SCH ×4 (00:30→19:25)
[2023-02-01] MEDS: Meropenem 1 GM in Sodium Chloride 0.9% 100 ML IVPB SCH ×3 (03:14→20:12)
[2023-02-01 03:45] LABS: INR-International Normal Ratio 1.9
[2023-02-01 03:57] LABS: Anion Gap 12 mmol/L (10-20); BUN (Urea Nitrogen) 56 mg/dL (8.4-25.7); Calc. Creatinine Clearance 84 mL/min (70-130); Calcium 8.1 mg/dL (7.8-10.44); Carbon Dioxide 31 mmol/L (23-31); Chloride 106 mmol/L (98-107); Estimated GFR 44; Glucose 137 mg/dL (80-115); Potassium 3.6 mmol/L (3.5-5.1); Sodium 145 mmol/L (136-145)
[2023-02-01 04:08] LABS: #Monocytes 0.6 10x3/uL (0.0-1.1); %Basophils 0.1 % (0.0-2.0); %Eosinophils 0.3 % (0.0-6.0); %Lymphocytes 7.2 % (18.0-47.0); %Monocytes 7.8 % (0.0-10.0); %Neutrophils 81.5 % (40.0-75.0); Hemoglobin 10.1 g/dL (13.5-17.5); Mean Corpuscular HGB CONC 28.3 g/dL (32.0-36.0); Mean Corpuscular Hemoglobin 22.2 pg (27.0-33.0); Mean Corpuscular Volume 78.6 fl (81.2-95.1); Mean Platelet Volume 10.4 fl (7.4-10.4); Platelet Count 152 10x3/uL (150-450); RBC Distribution Width 19.1 % (11.5-14.5); Red Blood Cell (RBC) Count 4.54 10x6/uL (4.32-5.72); White Blood Cell (WBC) Count 7.4 10x3/uL (3.5-10.5)
[2023-02-01] MEDS: Pantoprazole 40 MG VIAL IVP SCH (08:05)
[2023-02-01] MEDS: NIFEdipine XL 90 MG TAB PO SCH (08:06)
[2023-02-01] MEDS: Carvedilol 12.5 MG TAB PO SCH ×2 (08:06→16:57)
[2023-02-01] MEDS: predniSONE 20 MG TAB PO SCH (08:06)
[2023-02-01] MEDS: hydrALAZINE 25 MG TAB PO SCH ×3 (08:07→20:12)
[2023-02-01] MEDS ORDERED: Furosemide 40 MG TAB PO SCH (10:00)
[2023-02-01] MEDS: Warfarin Sodium 10 MG TAB PO SCH (16:57)
[2023-02-02] MEDS: Ipratropium/Albuterol 3 ML NEB NEB SCH ×4 (01:10→19:00)
[2023-02-02 04:00] LABS: INR-International Normal Ratio 2.3; Prothrombin Time 24.3 sec (9.5-12.1)
[2023-02-02 04:07] LABS: Anion Gap 10 mmol/L (10-20); BUN (Urea Nitrogen) 48 mg/dL (8.4-25.7); Calc. Creatinine Clearance 89 mL/min (70-130); Calcium 8.2 mg/dL (7.8-10.44); Carbon Dioxide 37 mmol/L (23-31); Chloride 104 mmol/L (98-107); Estimated GFR 47; Glucose 116 mg/dL (80-115); Potassium 4.2 mmol/L (3.5-5.1); Sodium 147 mmol/L (136-145)
[2023-02-02] MEDS: Meropenem 1 GM in Sodium Chloride 0.9% 100 ML IVPB SCH ×3 (04:58→20:34)
[2023-02-02] MEDS: Furosemide 40 MG TAB PO SCH (08:10)
[2023-02-02] MEDS: hydrALAZINE 25 MG TAB PO SCH ×3 (08:11→20:34)
[2023-02-02] MEDS: Pantoprazole 40 MG VIAL IVP SCH (08:11)
[2023-02-02] MEDS: Carvedilol 12.5 MG TAB PO SCH ×2 (08:11→16:40)
[2023-02-02] MEDS: predniSONE 20 MG TAB PO SCH (08:11)
[2023-02-02] MEDS: NIFEdipine XL 90 MG TAB PO SCH (08:42)
[2023-02-02] MEDS: Warfarin Sodium 10 MG TAB PO SCH (16:40)
[2023-02-03] MEDS: Ipratropium/Albuterol 3 ML NEB NEB SCH ×4 (00:05→18:51)
[2023-02-03] MEDS: Meropenem 1 GM in Sodium Chloride 0.9% 100 ML IVPB SCH (03:36)
[2023-02-03 05:22] LABS: INR-International Normal Ratio 2.4; Prothrombin Time 25.9 sec (9.5-12.1)
[2023-02-03 05:28] LABS: Anion Gap 14 mmol/L (10-20); BUN (Urea Nitrogen) 48 mg/dL (8.4-25.7); Calc. Creatinine Clearance 78 mL/min (70-130); Calcium 8.2 mg/dL (7.8-10.44); Carbon Dioxide 32 mmol/L (23-31); Chloride 103 mmol/L (98-107); Estimated GFR 40; Glucose 121 mg/dL (80-115); Potassium 3.9 mmol/L (3.5-5.1); Sodium 145 mmol/L (136-145)
[2023-02-03] MEDS: hydrALAZINE 25 MG TAB PO SCH ×3 (07:43→20:26)
[2023-02-03] MEDS: Carvedilol 12.5 MG TAB PO SCH ×2 (07:43→17:30)
[2023-02-03] MEDS: NIFEdipine XL 90 MG TAB PO SCH (07:44)
[2023-02-03] MEDS: predniSONE 20 MG TAB PO SCH (07:44)
[2023-02-03] MEDS: Pantoprazole 40 MG VIAL IVP SCH (07:44)
[2023-02-03] MEDS: Furosemide 40 MG TAB PO SCH (07:51)
[2023-02-03] MEDS: Warfarin Sodium 10 MG TAB PO SCH (17:30)
[2023-02-03] MEDS ORDERED: HYDROcodone/Acetaminophen 5/325 mg Tablet PO SCH (21:45)
[2023-02-04] MEDS: Ipratropium/Albuterol 3 ML NEB NEB SCH ×4 (00:52→18:16)
[2023-02-04 05:45] LABS: INR-International Normal Ratio 2.5; Prothrombin Time 26.6 sec (9.5-12.1)
[2023-02-04 05:50] LABS: #Eosinphils 0.1 10x3/uL (0.0-0.5); #Monocytes 1.2 10x3/uL (0.0-1.1); #Neutrophils 9.3 10x3/uL (1.5-8.4); %Basophils 0.2 % (0.0-2.0); %Eosinophils 1.1 % (0.0-6.0); %Lymphocytes 10.2 % (18.0-47.0); %Monocytes 9.9 % (0.0-10.0); %Neutrophils 74.9 % (40.0-75.0); Hemoglobin 8.2 g/dL (13.5-17.5); Mean Corpuscular HGB CONC 29.5 g/dL (32.0-36.0); Mean Corpuscular Volume 78.1 fl (81.2-95.1); Mean Platelet Volume 12.6 fl (7.4-10.4); Platelet Count 171 10x3/uL (150-450); RBC Distribution Width 20.5 % (11.5-14.5); Red Blood Cell (RBC) Count 3.56 10x6/uL (4.32-5.72); White Blood Cell (WBC) Count 12.5 10x3/uL (3.5-10.5)
[2023-02-04 05:54] LABS: Anion Gap 15 mmol/L (10-20); BUN (Urea Nitrogen) 55 mg/dL (8.4-25.7); Calc. Creatinine Clearance 64 mL/min (70-130); Calcium 8.4 mg/dL (7.8-10.44); Carbon Dioxide 31 mmol/L (23-31); Chloride 102 mmol/L (98-107); Estimated GFR 32; Glucose 124 mg/dL (80-115); Magnesium 1.9 mg/dL (1.6-2.6); Potassium 5.1 mmol/L (3.5-5.1); Sodium 143 mmol/L (136-145)
[2023-02-04] MEDS: hydrALAZINE 25 MG TAB PO SCH ×3 (08:20→21:32)
[2023-02-04] MEDS: predniSONE 20 MG TAB PO SCH (08:20)
[2023-02-04] MEDS: NIFEdipine XL 90 MG TAB PO SCH (08:20)
[2023-02-04] MEDS: Furosemide 40 MG TAB PO SCH (08:20)
[2023-02-04] MEDS: Carvedilol 12.5 MG TAB PO SCH ×2 (08:20→16:47)
[2023-02-04] MEDS: Pantoprazole 40 MG VIAL IVP SCH (08:21)
[2023-02-04] MEDS: Albumin 25% 25 GM/100 ML BOT IVPB SCH ×2 (13:23→18:12)
[2023-02-04] MEDS ORDERED: traMADol HCl 50 MG TAB PO PRN (16:23)
[2023-02-04] MEDS: Warfarin Sodium 10 MG TAB PO SCH (16:46)
[2023-02-04] MEDS ORDERED: diphenhydrAMINE 12.5 MG/5 ML UDCUP PO PRN (21:00)
[2023-02-04] MEDS: HYDROcodone/Acetaminophen 5/325 mg Tablet PO PRN (21:28)
[2023-02-05] MEDS: Albumin 25% 25 GM/100 ML BOT IVPB SCH ×2 (00:17→20:36)
[2023-02-05] MEDS: Ipratropium/Albuterol 3 ML NEB NEB SCH ×4 (01:08→19:27)
[2023-02-05 04:37] LABS: INR-International Normal Ratio 3.4; Prothrombin Time 35.7 sec (9.5-12.1)
[2023-02-05 04:42] LABS: Anion Gap 13 mmol/L (10-20); BUN (Urea Nitrogen) 58 mg/dL (8.4-25.7); Calc. Creatinine Clearance 65 mL/min (70-130); Calcium 8.6 mg/dL (7.8-10.44); Carbon Dioxide 34 mmol/L (23-31); Chloride 99 mmol/L (98-107); Estimated GFR 33; Glucose 123 mg/dL (80-115); Magnesium 1.9 mg/dL (1.6-2.6); Potassium 4.2 mmol/L (3.5-5.1); Sodium 142 mmol/L (136-145)
[2023-02-05 05:25] LABS: #Eosinphils 0.1 10x3/uL (0.0-0.5); #Neutrophils 8.7 10x3/uL (1.5-8.4); %Basophils 0.1 % (0.0-2.0); %Eosinophils 0.7 % (0.0-6.0); %Lymphocytes 6.9 % (18.0-47.0); %Monocytes 8.8 % (0.0-10.0); %Neutrophils 79.6 % (40.0-75.0); Hemoglobin 5.8 g/dL (13.5-17.5); Mean Corpuscular HGB CONC 29.1 g/dL (32.0-36.0); Mean Corpuscular Hemoglobin 22.9 pg (27.0-33.0); Mean Corpuscular Volume 78.7 fl (81.2-95.1); Mean Platelet Volume 11.7 fl (7.4-10.4); Platelet Count 140 10x3/uL (150-450); RBC Distribution Width 20.8 % (11.5-14.5); Red Blood Cell (RBC) Count 2.53 10x6/uL (4.32-5.72)
[2023-02-05 05:27] LABS: Hypochromia SLIGHT = 6-15 cells (100X) (0-5/hpf); Microcytosis SLIGHT = 6-15 cells (100X) (0-5/hpf); Platelet Adequacy Comment Appears Adequate
[2023-02-05] MEDS ORDERED: Magnesium 2 GM/50 ML(in water) 2 GM in Premix Bag 1 BAG IVPB SCH ×2 (08:00→17:00)
[2023-02-05] MEDS ORDERED: Pantoprazole 40 MG VIAL IVP SCH (09:00)
[2023-02-05 10:27] LABS: #Eosinphils 0.1 10x3/uL (0.0-0.5); #Monocytes 1.1 10x3/uL (0.0-1.1); #Neutrophils 10.1 10x3/uL (1.5-8.4); %Basophils 0.1 % (0.0-2.0); %Eosinophils 0.7 % (0.0-6.0); %Lymphocytes 6.2 % (18.0-47.0); %Monocytes 8.5 % (0.0-10.0); %Neutrophils 80.3 % (40.0-75.0); Hemoglobin 5.8 g/dL (13.5-17.5); Mean Corpuscular Hemoglobin 22.9 pg (27.0-33.0); Mean Corpuscular Volume 79.1 fl (81.2-95.1); Mean Platelet Volume 11.7 fl (7.4-10.4); Platelet Count 159 10x3/uL (150-450); Red Blood Cell (RBC) Count 2.53 10x6/uL (4.32-5.72); White Blood Cell (WBC) Count 12.6 10x3/uL (3.5-10.5)
[2023-02-05 10:44] LABS: INR-International Normal Ratio 3.6; PTT 43.2 sec (22.0-33.0); Prothrombin Time 37.9 sec (9.5-12.1)
[2023-02-05] MEDS: HYDROcodone/Acetaminophen 5/325 mg Tablet PO PRN ×2 (11:22→20:26)
[2023-02-05] MEDS: hydrALAZINE 25 MG TAB PO SCH ×3 (11:24→20:26)
[2023-02-05] MEDS: Carvedilol 12.5 MG TAB PO SCH ×2 (11:24→17:18)
[2023-02-05] MEDS: NIFEdipine XL 90 MG TAB PO SCH (11:26)
[2023-02-05 17:04] LABS: Hemoglobin 6.6 g/dL (13.5-17.5)
[2023-02-05 22:12] LABS: Hemoglobin 7.1 g/dL (13.5-17.5)
[2023-02-06] MEDS: Ipratropium/Albuterol 3 ML NEB NEB SCH ×4 (01:24→19:26)
[2023-02-06 04:32] LABS: #Eosinphils 0.1 10x3/uL (0.0-0.5); #Monocytes 1.2 10x3/uL (0.0-1.1); #Neutrophils 10.7 10x3/uL (1.5-8.4); %Basophils 0.1 % (0.0-2.0); %Eosinophils 0.7 % (0.0-6.0); %Lymphocytes 4.2 % (18.0-47.0); %Monocytes 9.2 % (0.0-10.0); %Neutrophils 83.4 % (40.0-75.0); Hemoglobin 7.1 g/dL (13.5-17.5); Mean Corpuscular HGB CONC 30.1 g/dL (32.0-36.0); Mean Corpuscular Volume 79.7 fl (81.2-95.1); Platelet Count 129 10x3/uL (150-450); RBC Distribution Width 20.6 % (11.5-14.5); Red Blood Cell (RBC) Count 2.96 10x6/uL (4.32-5.72); White Blood Cell (WBC) Count 12.8 10x3/uL (3.5-10.5)
[2023-02-06 04:43] LABS: INR-International Normal Ratio 3.3; Prothrombin Time 34.5 sec (9.5-12.1)
[2023-02-06 04:51] LABS: Anion Gap 13 mmol/L (10-20); BUN (Urea Nitrogen) 48 mg/dL (8.4-25.7); Calc. Creatinine Clearance 78 mL/min (70-130); Calcium 8.7 mg/dL (7.8-10.44); Carbon Dioxide 32 mmol/L (23-31); Chloride 100 mmol/L (98-107); Estimated GFR 41; Glucose 119 mg/dL (80-115); Magnesium 2.3 mg/dL (1.6-2.6); Potassium 4.2 mmol/L (3.5-5.1); Sodium 141 mmol/L (136-145)
[2023-02-06] MEDS: hydrALAZINE 25 MG TAB PO SCH ×3 (09:28→22:10)
[2023-02-06] MEDS: Carvedilol 12.5 MG TAB PO SCH ×2 (09:28→15:54)
[2023-02-06] MEDS: NIFEdipine XL 90 MG TAB PO SCH (09:28)
[2023-02-06] MEDS: HYDROcodone/Acetaminophen 5/325 mg Tablet PO PRN ×2 (11:14→22:25)
[2023-02-06 22:23] LABS: Hemoglobin 7.1 g/dL (13.5-17.5)
[2023-02-07] MEDS: Ipratropium/Albuterol 3 ML NEB NEB SCH ×4 (01:28→19:31)
[2023-02-07 02:57] LABS: #Eosinphils 0.1 10x3/uL (0.0-0.5); #Monocytes 1.2 10x3/uL (0.0-1.1); #Neutrophils 11.3 10x3/uL (1.5-8.4); %Basophils 0.1 % (0.0-2.0); %Eosinophils 0.7 % (0.0-6.0); %Lymphocytes 4.8 % (18.0-47.0); %Monocytes 8.7 % (0.0-10.0); %Neutrophils 84.2 % (40.0-75.0); Hemoglobin 6.9 g/dL (13.5-17.5); Mean Corpuscular HGB CONC 30.8 g/dL (32.0-36.0); Mean Corpuscular Hemoglobin 24.9 pg (27.0-33.0); Mean Corpuscular Volume 80.9 fl (81.2-95.1); Mean Platelet Volume 11.5 fl (7.4-10.4); Platelet Count 121 10x3/uL (150-450); RBC Distribution Width 20.8 % (11.5-14.5); Red Blood Cell (RBC) Count 2.77 10x6/uL (4.32-5.72); White Blood Cell (WBC) Count 13.4 10x3/uL (3.5-10.5)
[2023-02-07 03:02] LABS: INR-International Normal Ratio 2.6
[2023-02-07 03:19] LABS: Anion Gap 13 mmol/L (10-20); BUN (Urea Nitrogen) 45 mg/dL (8.4-25.7); Calc. Creatinine Clearance 83 mL/min (70-130); Calcium 8.5 mg/dL (7.8-10.44); Carbon Dioxide 31 mmol/L (23-31); Chloride 101 mmol/L (98-107); Estimated GFR 42; Glucose 120 mg/dL (80-115); Magnesium 2.1 mg/dL (1.6-2.6); Potassium 4.3 mmol/L (3.5-5.1); Sodium 141 mmol/L (136-145)
[2023-02-07] MEDS: HYDROcodone/Acetaminophen 5/325 mg Tablet PO PRN ×3 (04:46→18:48)
[2023-02-07] MEDS ORDERED: Furosemide 40 MG/4 ML VIAL SLOW IVP SCH (09:00)
[2023-02-07] MEDS: hydrALAZINE 25 MG TAB PO SCH ×3 (09:26→23:16)
[2023-02-07] MEDS: Carvedilol 12.5 MG TAB PO SCH ×2 (09:26→17:25)
[2023-02-07] MEDS: NIFEdipine XL 90 MG TAB PO SCH (09:26)
[2023-02-07] MEDS ORDERED: Polyethylene Glycol 3350 17 GM Packet PO PRN (12:48)
[2023-02-07] MEDS ORDERED: Polyethylene Glycol 3350 17 GM Packet PO SCH (13:00)
[2023-02-07] MEDS ORDERED: Furosemide 20 MG/2 ML VIAL SLOW IVP SCH (14:00)
[2023-02-07 16:53] LABS: Hemoglobin 8.1 g/dL (13.5-17.5)
[2023-02-08] MEDS: Ipratropium/Albuterol 3 ML NEB NEB SCH ×4 (01:23→19:23)
[2023-02-08] MEDS: HYDROcodone/Acetaminophen 5/325 mg Tablet PO PRN ×3 (02:23→18:32)
[2023-02-08 05:32] LABS: Prothrombin Time 21.4 sec (9.5-12.1)
[2023-02-08 05:37] LABS: Anion Gap 12 mmol/L (10-20); BUN (Urea Nitrogen) 47 mg/dL (8.4-25.7); Calc. Creatinine Clearance 76 mL/min (70-130); Calcium 8.6 mg/dL (7.8-10.44); Carbon Dioxide 33 mmol/L (23-31); Chloride 100 mmol/L (98-107); Estimated GFR 38; Glucose 129 mg/dL (80-115); Sodium 141 mmol/L (136-145)
[2023-02-08 05:46] LABS: #Eosinphils 0.1 10x3/uL (0.0-0.5); #Monocytes 0.9 10x3/uL (0.0-1.1); #Neutrophils 11.1 10x3/uL (1.5-8.4); %Basophils 0.2 % (0.0-2.0); %Eosinophils 0.9 % (0.0-6.0); %Monocytes 7.3 % (0.0-10.0); %Neutrophils 86.3 % (40.0-75.0); Hemoglobin 7.7 g/dL (13.5-17.5); Mean Corpuscular HGB CONC 31.3 g/dL (32.0-36.0); Mean Corpuscular Hemoglobin 25.8 pg (27.0-33.0); Mean Corpuscular Volume 82.6 fl (81.2-95.1); Mean Platelet Volume 11.6 fl (7.4-10.4); Platelet Count 110 10x3/uL (150-450); RBC Distribution Width 19.9 % (11.5-14.5); Red Blood Cell (RBC) Count 2.98 10x6/uL (4.32-5.72)
[2023-02-08] MEDS: hydrALAZINE 25 MG TAB PO SCH ×3 (09:09→23:31)
[2023-02-08] MEDS: Carvedilol 12.5 MG TAB PO SCH ×2 (09:09→17:43)
[2023-02-08] MEDS: NIFEdipine XL 90 MG TAB PO SCH (09:09)
[2023-02-08] MEDS: Furosemide 40 MG TAB PO SCH (09:09)
[2023-02-08 12:09] LABS: Hemoglobin 7.7 g/dL (13.5-17.5)
[2023-02-08] MEDS ORDERED: Morphine ER 15 MG TAB PO SCH (13:30)
[2023-02-08] MEDS: Morphine ER 15 MG TAB PO SCH (22:05)
[2023-02-09] MEDS: Ipratropium/Albuterol 3 ML NEB NEB SCH ×4 (00:39→18:57)
[2023-02-09] MEDS: HYDROcodone/Acetaminophen 5/325 mg Tablet PO PRN (02:38)
[2023-02-09 05:06] LABS: #Eosinphils 0.1 10x3/uL (0.0-0.5); #Monocytes 0.7 10x3/uL (0.0-1.1); #Neutrophils 10.9 10x3/uL (1.5-8.4); %Basophils 0.1 % (0.0-2.0); %Eosinophils 0.9 % (0.0-6.0); %Lymphocytes 3.9 % (18.0-47.0); %Monocytes 5.4 % (0.0-10.0); %Neutrophils 88.8 % (40.0-75.0); Hemoglobin 7.4 g/dL (13.5-17.5); Mean Corpuscular HGB CONC 30.8 g/dL (32.0-36.0); Mean Corpuscular Hemoglobin 25.8 pg (27.0-33.0); Mean Corpuscular Volume 83.6 fl (81.2-95.1); Mean Platelet Volume 11.2 fl (7.4-10.4); Platelet Count 116 10x3/uL (150-450); RBC Distribution Width 20.4 % (11.5-14.5); Red Blood Cell (RBC) Count 2.87 10x6/uL (4.32-5.72); White Blood Cell (WBC) Count 12.4 10x3/uL (3.5-10.5)
[2023-02-09 05:09] LABS: INR-International Normal Ratio 1.7; Prothrombin Time 18.1 sec (9.5-12.1)
[2023-02-09 05:14] LABS: Anion Gap 12 mmol/L (10-20); BUN (Urea Nitrogen) 50 mg/dL (8.4-25.7); Calc. Creatinine Clearance 75 mL/min (70-130); Calcium 8.9 mg/dL (7.8-10.44); Carbon Dioxide 32 mmol/L (23-31); Chloride 99 mmol/L (98-107); Estimated GFR 37; Glucose 119 mg/dL (80-115); Potassium 4.4 mmol/L (3.5-5.1); Sodium 139 mmol/L (136-145)
[2023-02-09] MEDS: Morphine ER 15 MG TAB PO SCH ×2 (08:20→20:47)
[2023-02-09] MEDS: hydrALAZINE 25 MG TAB PO SCH ×3 (08:23→20:46)
[2023-02-09] MEDS: Carvedilol 12.5 MG TAB PO SCH ×2 (08:24→16:18)
[2023-02-09] MEDS: NIFEdipine XL 90 MG TAB PO SCH (08:24)
[2023-02-09] MEDS: Furosemide 40 MG TAB PO SCH (10:24)
[2023-02-09] MEDS ORDERED: Bisacodyl 5 MG TAB PO SCH (15:15)
[2023-02-09 18:23] LABS: Hemoglobin 8.4 g/dL (13.5-17.5)
[2023-02-10] MEDS: Ipratropium/Albuterol 3 ML NEB NEB SCH ×4 (01:07→18:30)
[2023-02-10 05:40] LABS: #Eosinphils 0.1 10x3/uL (0.0-0.5); #Monocytes 0.8 10x3/uL (0.0-1.1); #Neutrophils 10.3 10x3/uL (1.5-8.4); %Basophils 0.1 % (0.0-2.0); %Lymphocytes 4.5 % (18.0-47.0); %Monocytes 6.4 % (0.0-10.0); %Neutrophils 87.2 % (40.0-75.0); Hemoglobin 8.1 g/dL (13.5-17.5); Mean Corpuscular HGB CONC 30.5 g/dL (32.0-36.0); Mean Corpuscular Hemoglobin 25.8 pg (27.0-33.0); Mean Corpuscular Volume 84.7 fl (81.2-95.1); Mean Platelet Volume 11.4 fl (7.4-10.4); Platelet Count 119 10x3/uL (150-450); RBC Distribution Width 19.9 % (11.5-14.5); Red Blood Cell (RBC) Count 3.14 10x6/uL (4.32-5.72); White Blood Cell (WBC) Count 11.8 10x3/uL (3.5-10.5)
[2023-02-10 05:42] LABS: INR-International Normal Ratio 1.6; Prothrombin Time 16.7 sec (9.5-12.1)
[2023-02-10 05:43] LABS: Anion Gap 15 mmol/L (10-20); BUN (Urea Nitrogen) 57 mg/dL (8.4-25.7); Calc. Creatinine Clearance 66 mL/min (70-130); Calcium 9.2 mg/dL (7.8-10.44); Carbon Dioxide 32 mmol/L (23-31); Chloride 97 mmol/L (98-107); Estimated GFR 32; Glucose 108 mg/dL (80-115); Potassium 5.3 mmol/L (3.5-5.1); Sodium 139 mmol/L (136-145)
[2023-02-10] MEDS: NIFEdipine XL 90 MG TAB PO SCH (09:00)
[2023-02-10] MEDS: Carvedilol 12.5 MG TAB PO SCH ×2 (09:02→18:08)
[2023-02-10] MEDS: Morphine ER 15 MG TAB PO SCH ×2 (09:03→20:36)
[2023-02-10] MEDS: hydrALAZINE 25 MG TAB PO SCH ×3 (09:05→20:26)
[2023-02-10 11:54] LABS: Hemoglobin 8.3 g/dL (13.5-17.5); INR-International Normal Ratio 1.6; PTT 36.7 sec (22.0-33.0); Platelet Count 132 10x3/uL (150-450); Prothrombin Time 16.6 sec (9.5-12.1)
[2023-02-10] MEDS: HYDROcodone/Acetaminophen 5/325 mg Tablet PO PRN (12:15)
[2023-02-10] MEDS: Heparin 10,000 UNITS/ 10 ML VIAL SLOW IVP SCH (14:24)
[2023-02-10] MEDS: Heparin 25,000 units/D5W 500 ML IVPB SCH (14:26)
[2023-02-11] MEDS: Ipratropium/Albuterol 3 ML NEB NEB SCH ×4 (00:49→18:51)
[2023-02-11] MEDS: HYDROcodone/Acetaminophen 5/325 mg Tablet PO PRN ×3 (05:26→23:56)
[2023-02-11 06:16] LABS: INR-International Normal Ratio 1.6; Prothrombin Time 16.6 sec (9.5-12.1)
[2023-02-11] MEDS: Morphine ER 15 MG TAB PO SCH ×2 (07:58→21:06)
[2023-02-11] MEDS: Carvedilol 12.5 MG TAB PO SCH ×2 (07:58→18:16)
[2023-02-11] MEDS: Furosemide 40 MG TAB PO SCH (08:00)
[2023-02-11] MEDS: hydrALAZINE 25 MG TAB PO SCH ×3 (08:00→20:09)
[2023-02-11] MEDS: NIFEdipine XL 90 MG TAB PO SCH (08:02)
[2023-02-11 08:42] LABS: #Eosinphils 0.1 10x3/uL (0.0-0.5); #Monocytes 0.7 10x3/uL (0.0-1.1); #Neutrophils 9.4 10x3/uL (1.5-8.4); %Basophils 0.2 % (0.0-2.0); %Eosinophils 0.7 % (0.0-6.0); %Lymphocytes 5.3 % (18.0-47.0); %Monocytes 6.4 % (0.0-10.0); %Neutrophils 86.5 % (40.0-75.0); Hemoglobin 7.6 g/dL (13.5-17.5); Mean Corpuscular HGB CONC 30.3 g/dL (32.0-36.0); Mean Corpuscular Hemoglobin 25.6 pg (27.0-33.0); Mean Corpuscular Volume 84.5 fl (81.2-95.1); Mean Platelet Volume 11.3 fl (7.4-10.4); Platelet Count 145 10x3/uL (150-450); Red Blood Cell (RBC) Count 2.97 10x6/uL (4.32-5.72); White Blood Cell (WBC) Count 10.9 10x3/uL (3.5-10.5)
[2023-02-11 14:14] LABS: Hemoglobin 7.8 g/dL (13.5-17.5); Platelet Count 145 10x3/uL (150-450)
[2023-02-11 16:07] LABS: INR-International Normal Ratio 1.5; PTT 49.5 sec (22.0-33.0); Prothrombin Time 15.9 sec (9.5-12.1)
[2023-02-11] MEDS: Heparin 25,000 units/D5W 500 ML IVPB SCH (21:05)
[2023-02-11] MEDS ORDERED: diphenhydrAMINE 25 MG CAP PO SCH (22:45)
[2023-02-12] MEDS: Ipratropium/Albuterol 3 ML NEB NEB SCH ×4 (01:14→19:55)
[2023-02-12 06:19] LABS: #Eosinphils 0.1 10x3/uL (0.0-0.5); #Monocytes 0.7 10x3/uL (0.0-1.1); #Neutrophils 9.1 10x3/uL (1.5-8.4); %Basophils 0.2 % (0.0-2.0); %Monocytes 6.2 % (0.0-10.0); %Neutrophils 86.8 % (40.0-75.0); Hemoglobin 8.1 g/dL (13.5-17.5); Mean Corpuscular HGB CONC 30.1 g/dL (32.0-36.0); Mean Corpuscular Hemoglobin 25.5 pg (27.0-33.0); Mean Corpuscular Volume 84.6 fl (81.2-95.1); Mean Platelet Volume 10.9 fl (7.4-10.4); Platelet Count 177 10x3/uL (150-450); RBC Distribution Width 20.1 % (11.5-14.5); Red Blood Cell (RBC) Count 3.18 10x6/uL (4.32-5.72); White Blood Cell (WBC) Count 10.5 10x3/uL (3.5-10.5)
[2023-02-12] MEDS ORDERED: Lidocaine 2% Viscous Solution 20 ML, Aluminum & Magnesium Hydroxide 30 ML SSW SCH (06:30)
[2023-02-12 06:31] LABS: INR-International Normal Ratio 1.6; PTT 44.2 sec (22.0-33.0); Prothrombin Time 16.7 sec (9.5-12.1)
[2023-02-12 06:45] LABS: ALT (SGPT) 52 U/L (8-55); AST (SGOT) 30 U/L (5-34); Albumin 2.9 g/dL (3.4-4.8); Alkaline Phosphatase 281 U/L (40-110); Anion Gap 17 mmol/L (10-20); BUN (Urea Nitrogen) 72 mg/dL (8.4-25.7); Bilirubin, Total 2.6 mg/dL (0.2-1.2); Calc. Creatinine Clearance 61 mL/min (70-130); Calcium 8.8 mg/dL (7.8-10.44); Carbon Dioxide 29 mmol/L (23-31); Chloride 93 mmol/L (98-107); Estimated GFR 31; Globulin 2.6 g/dL (2.4-3.5); Glucose 126 mg/dL (80-115); Magnesium 1.9 mg/dL (1.6-2.6); Potassium 5.2 mmol/L (3.5-5.1); Protein, Total 5.5 g/dL (5.8-8.1); Sodium 134 mmol/L (136-145)
[2023-02-12 06:50] LABS: Troponin I Less than 0.010 ng/mL (< 0.028)
[2023-02-12] MEDS ORDERED: Mag-Al Plus 1200 MG/1200 MG/120 MG/30 ML UDCUP PO SCH (07:30)
[2023-02-12] MEDS: Morphine ER 15 MG TAB PO SCH ×2 (08:18→20:59)
[2023-02-12] MEDS: NIFEdipine XL 90 MG TAB PO SCH ×2 (08:18→08:21)
[2023-02-12] MEDS: Furosemide 40 MG TAB PO SCH (08:18)
[2023-02-12] MEDS: Carvedilol 12.5 MG TAB PO SCH ×2 (08:18→16:22)
[2023-02-12] MEDS: hydrALAZINE 25 MG TAB PO SCH ×3 (08:19→20:59)
[2023-02-12] MEDS ORDERED: Promethazine HCl 25 MG in Sodium Chloride 0.9% 50 ML IVPB PRN (17:26)
[2023-02-12] MEDS ORDERED: Meropenem 1 GM in Sodium Chloride 0.9% 100 ML IVPB SCH (18:30)
[2023-02-12] MEDS ORDERED: VANCOMYCIN 2 GRAM/400 ML BAG 2 GM in Premix Bag 1 BAG IVPB SCH (19:30)
[2023-02-12 20:29] LABS: Hemoglobin 8.7 g/dL (13.5-17.5); Platelet Count 210 10x3/uL (150-450)
[2023-02-12 20:35] LABS: Lactic Acid 0.9 mmol/L (0.5-2.2)
[2023-02-12 20:45] LABS: Troponin I 0.017 ng/mL (< 0.028)
[2023-02-12] MEDS ORDERED: Vancomycin 1 GM in Premix Bag 1 BAG IVPB SCH (21:00)
[2023-02-12] MEDS: Pantoprazole 40 MG VIAL IVP SCH (21:02)
[2023-02-12] MEDS ORDERED: Sterile Water 10 ML ONE (21:08)
[2023-02-12] MEDS ORDERED: Sodium Chloride 0.9% 1,000 ML IV SCH (22:30)
[2023-02-12] MEDS ORDERED: NOREPINEPHRINE 8 MG/250 ML-D5W 250 ML ONE (23:36)
[2023-02-12] MEDS: NOREPINEPHRINE 8 MG/250 ML-D5W 250 ML IVPB SCH (23:47)
[2023-02-13] MEDS: Ipratropium/Albuterol 3 ML NEB NEB SCH ×4 (00:55→19:00)
[2023-02-13 00:58] LABS: Base Excess (BEa) 3.1 mEq/L (-2.0 to +3.0); CO2 Tension 51.5 mmHg (35.0-45.0); Calcium, Ionized (arterial) 1.02 mmol/L (1.12-1.30); Carboxyhemoglobin (COHb) 1.9 gm% (0.0-3.0); Hematocrit-ABG 27 % (42.0-52.0); Hemoglobin (Hb) 9.3 g/dL (14.0-18.0); O2 Tension (PaO2), arterial 60.1 mmHg (> 80.0); Potassium - ABG Lab 5.19 mmol/L (3.70-5.30); Puncture Site RRA; pH, Arterial 7.369 (7.35-7.45)
[2023-02-13] MEDS ORDERED: Albumin 25% 25 GM/100 ML BOT IVPB SCH ×2 (01:00→20:00)
[2023-02-13 01:02] LABS: ALV-art Gradient 75.165 mmHg (0-20)
[2023-02-13 01:04] LABS: #Monocytes 0.6 10x3/uL (0.0-1.1); #Neutrophils 11.5 10x3/uL (1.5-8.4); %Basophils 0.2 % (0.0-2.0); %Eosinophils 0.2 % (0.0-6.0); %Lymphocytes 2.2 % (18.0-47.0); %Monocytes 4.9 % (0.0-10.0); %Neutrophils 92.1 % (40.0-75.0); Hemoglobin 8.6 g/dL (13.5-17.5); Mean Corpuscular HGB CONC 30.4 g/dL (32.0-36.0); Mean Corpuscular Hemoglobin 25.7 pg (27.0-33.0); Mean Corpuscular Volume 84.5 fl (81.2-95.1); Mean Platelet Volume 10.4 fl (7.4-10.4); Platelet Count 249 10x3/uL (150-450); RBC Distribution Width 20.6 % (11.5-14.5); Red Blood Cell (RBC) Count 3.35 10x6/uL (4.32-5.72); White Blood Cell (WBC) Count 12.6 10x3/uL (3.5-10.5)
[2023-02-13 01:25] LABS: Anion Gap 16 mmol/L (10-20); BUN (Urea Nitrogen) 81 mg/dL (8.4-25.7); Calc. Creatinine Clearance 64 mL/min (70-130); Calcium 8.4 mg/dL (7.8-10.44); Carbon Dioxide 29 mmol/L (23-31); Chloride 93 mmol/L (98-107); Estimated GFR 32; Glucose 123 mg/dL (80-115); Magnesium 1.9 mg/dL (1.6-2.6); Potassium 5.3 mmol/L (3.5-5.1); Sodium 133 mmol/L (136-145)
[2023-02-13] MEDS: Meropenem 1 GM in Sodium Chloride 0.9% 100 ML IVPB SCH ×2 (02:14→14:48)
[2023-02-13] MEDS: Heparin 25,000 units/D5W 500 ML IVPB SCH (03:46)
[2023-02-13 04:09] LABS: #Monocytes 0.5 10x3/uL (0.0-1.1); #Neutrophils 9.7 10x3/uL (1.5-8.4); %Basophils 0.1 % (0.0-2.0); %Eosinophils 0.2 % (0.0-6.0); %Lymphocytes 2.9 % (18.0-47.0); %Monocytes 4.6 % (0.0-10.0); %Neutrophils 91.8 % (40.0-75.0); Hemoglobin 7.4 g/dL (13.5-17.5); Mean Corpuscular HGB CONC 30.8 g/dL (32.0-36.0); Mean Corpuscular Hemoglobin 25.9 pg (27.0-33.0); Mean Corpuscular Volume 83.9 fl (81.2-95.1); Mean Platelet Volume 10.3 fl (7.4-10.4); Platelet Count 198 10x3/uL (150-450); RBC Distribution Width 20.3 % (11.5-14.5); Red Blood Cell (RBC) Count 2.86 10x6/uL (4.32-5.72); White Blood Cell (WBC) Count 10.5 10x3/uL (3.5-10.5)
[2023-02-13 04:19] LABS: INR-International Normal Ratio 1.9; Prothrombin Time 20.1 sec (9.5-12.1)
[2023-02-13 04:23] LABS: ALT (SGPT) 32 U/L (8-55); AST (SGOT) 14 U/L (5-34); Albumin 3.3 g/dL (3.4-4.8); Alkaline Phosphatase 187 U/L (40-110); Bilirubin, Direct 1.3 mg/dL (0.1-0.3); Protein, Total 5.4 g/dL (5.8-8.1)
[2023-02-13] MEDS ORDERED: Metoclopramide HCl 10 MG/2 ML VIAL IVP SCH (06:00)
[2023-02-13] MEDS: Furosemide 40 MG TAB PO SCH (06:31)
[2023-02-13] MEDS: Pantoprazole 40 MG VIAL IVP SCH ×2 (07:48→21:10)
[2023-02-13] MEDS: Carvedilol 12.5 MG TAB PO SCH ×2 (07:48→17:34)
[2023-02-13] MEDS: hydrALAZINE 25 MG TAB PO SCH ×3 (07:49→20:22)
[2023-02-13] MEDS: Morphine ER 15 MG TAB PO SCH (07:50)
[2023-02-13] MEDS: NIFEdipine XL 90 MG TAB PO SCH (07:51)
[2023-02-13] MEDS ORDERED: Sodium Chloride 0.9% 1,000 ML IV SCH ×3 (09:30→23:00)
[2023-02-13 10:18] LABS: Lactic Acid 0.7 mmol/L (0.5-2.2)
[2023-02-13 10:37] LABS: Lymphocytes 2 % (21-51); Monocytes 6 % (0-10); Reactive Lymphocytes 1 % (0-10)
[2023-02-13 10:45] LABS: Band 31 % (5-11); Neutrophil 60 % (42-75); Platelet Adequacy Comment Appears Adequate
[2023-02-13 10:48] LABS: Hypochromia SLIGHT = 6-15 cells (100X) (0-5/hpf); Ovalocytes SLIGHT = 2-5 cells (100X) (0-1/hpf); Polychromasia SLIGHT = 2-3 cells (100X) (0-2/hpf)
[2023-02-13 10:49] LABS: MDiff Complete? YES
[2023-02-13] MEDS ORDERED: Iopamidol 370 76% 100 ML VIAL ONE (12:51)
[2023-02-13 14:50] LABS: INR-International Normal Ratio 2.1; PTT 37.2 sec (22.0-33.0); Prothrombin Time 21.8 sec (9.5-12.1)
[2023-02-13] MEDS ORDERED: Fentanyl 250 MCG/5 ML VIAL ONE (15:12)
[2023-02-13] MEDS ORDERED: Succinylcholine 200 MG/10 ml SYRINGE FS ONE (15:14)
[2023-02-13] MEDS ORDERED: PHENYLEPHRINE-NS 100 MCG/ML 10 ML SYRINGE ONE (15:14)
[2023-02-13] MEDS ORDERED: Sodium Chloride 0.9% 20 ML ONE (15:19)
[2023-02-13] MEDS ORDERED: Calcium Chloride 1 GM/10 ML Abboject SYRINGE ONE (15:20)
[2023-02-13 16:01] LABS: Actual Bicarbonate (HCO3a) 25.5 mEq/L (22-28); CO2 Tension 45.5 mmHg (35.0-45.0); Calcium, Ionized (arterial) 1.05 mmol/L (1.12-1.30); Hematocrit-ABG 27 % (42.0-52.0); Hemoglobin (Hb) 9.3 g/dL (14.0-18.0); Potassium - ABG Lab 4.79 mmol/L (3.70-5.30); Puncture Site Arterial Line; RapidComm Collect By CBN; pH, Arterial 7.366 (7.35-7.45)
[2023-02-13] MEDS ORDERED: Midazolam HCl 5 mg/5 ml Vial ONE (16:12)
[2023-02-13] MEDS ORDERED: Vasopressin 20 UNITS/ML VIAL ONE (16:28)
[2023-02-13 17:43] LABS: CO2 Tension 47.2 mmHg (35.0-45.0); Calcium, Ionized (arterial) 1.03 mmol/L (1.12-1.30); Carboxyhemoglobin (COHb) 1.3 gm% (0.0-3.0); Hematocrit-ABG 29 % (42.0-52.0); Hemoglobin (Hb) 9.7 g/dL (14.0-18.0); Potassium - ABG Lab 4.92 mmol/L (3.70-5.30); Puncture Site Arterial Line; RapidComm Collect By CBN; pH, Arterial 7.325 (7.35-7.45)
[2023-02-13] MEDS: FENTANYL 2,000MCG/100-0.9%NACL 100 ML IVPB SCH (19:07)
[2023-02-13] MEDS ORDERED: Albumin 25% 100 ML ONE (19:07)
[2023-02-13 19:17] LABS: Actual Bicarbonate (HCO3a) 27.4 mEq/L (22-28); Base Excess (BEa) -1.4 mEq/L (-2.0 to +3.0); CO2 Tension 69.6 mmHg (35.0-45.0); Calcium, Ionized (arterial) 1.01 mmol/L (1.12-1.30); Hematocrit-ABG 31 % (42.0-52.0); Hemoglobin (Hb) 10.4 g/dL (14.0-18.0); O2 Tension (PaO2), arterial 78.2 mmHg (> 80.0); Potassium - ABG Lab 5.14 mmol/L (3.70-5.30); Puncture Site Arterial Line; pH, Arterial 7.213 (7.35-7.45)
[2023-02-13] MEDS ORDERED: Vancomycin 1.5 GRAM/300 ML BAG 1.5 GM in Premix Bag 1 BAG IVPB SCH (19:30)
[2023-02-13] MEDS: NOREPINEPHRINE 8 MG/250 ML-D5W 250 ML IVPB SCH (19:32)
[2023-02-13] MEDS ORDERED: Ventilator Sedation Protocol 1 EACH FS ONE (19:39)
[2023-02-13] MEDS ORDERED: Propofol BOLUS 1,000 MG/100 ML VIAL IV PRN (20:00)
[2023-02-13] MEDS ORDERED: Calcium Gluconate 4.6 MEQ in Sodium Chloride 0.9% 100 ML IVPB SCH (20:00)
[2023-02-13] MEDS ORDERED: Fentanyl BOLUS 250 ML IVPB PRN (20:00)
[2023-02-13] MEDS ORDERED: Morphine 2 MG/ML VIAL SLOW IVP PRN (20:00)
[2023-02-13] MEDS ORDERED: Lactated Ringer's 1,000 ML IV SCH (20:00)
[2023-02-13 21:01] LABS: ALV-art Gradient 586.225 mmHg (0-20); Actual Bicarbonate (HCO3a) 24.7 mEq/L (22-28); Base Excess (BEa) -1.8 mEq/L (-2.0 to +3.0); CO2 Tension 50.3 mmHg (35.0-45.0); Carboxyhemoglobin (COHb) 0.7 gm% (0.0-3.0); Hematocrit-ABG 29 % (42.0-52.0); Hemoglobin (Hb) 9.9 g/dL (14.0-18.0); O2 Tension (PaO2), arterial 63.9 mmHg (> 80.0); Potassium - ABG Lab 5.04 mmol/L (3.70-5.30); Puncture Site Arterial Line; pH, Arterial 7.309 (7.35-7.45)
[2023-02-13] MEDS: Vancomycin 1.5 GRAM/300 ML BAG 1.5 GM in Premix Bag 1 BAG IVPB SCH (21:10)
[2023-02-13] MEDS ORDERED: CALCIUM GLUC 1 GM/NS 50 ML 1 GM in Premix Bag 1 BAG IVPB SCH (23:00)
[2023-02-14] MEDS: Ipratropium/Albuterol 3 ML NEB NEB SCH ×4 (00:30→20:25)
[2023-02-14] MEDS: Heparin 25,000 units/D5W 500 ML IVPB SCH ×2 (01:50→17:35)
[2023-02-14 02:07] LABS: Hemoglobin 8.3 g/dL (13.5-17.5); MDiff Complete? YES; Mean Corpuscular HGB CONC 30.1 g/dL (32.0-36.0); Mean Corpuscular Volume 86.5 fl (81.2-95.1); Mean Platelet Volume 10.4 fl (7.4-10.4); Platelet Count 270 10x3/uL (150-450); RBC Distribution Width 19.9 % (11.5-14.5); Red Blood Cell (RBC) Count 3.19 10x6/uL (4.32-5.72)
[2023-02-14 02:17] LABS: INR-International Normal Ratio 2.4; Prothrombin Time 25.2 sec (9.5-12.1)
[2023-02-14 02:34] LABS: ALT (SGPT) 21 U/L (8-55); AST (SGOT) 12 U/L (5-34); Albumin 3.3 g/dL (3.4-4.8); Alkaline Phosphatase 120 U/L (40-110); Anion Gap 22 mmol/L (10-20); BUN (Urea Nitrogen) 83 mg/dL (8.4-25.7); Bilirubin, Total 1.7 mg/dL (0.2-1.2); Calc. Creatinine Clearance 58 mL/min (70-130); Calcium 8.1 mg/dL (7.8-10.44); Carbon Dioxide 21 mmol/L (23-31); Chloride 98 mmol/L (98-107); Estimated GFR 29; Globulin 1.9 g/dL (2.4-3.5); Glucose 146 mg/dL (80-115); Potassium 5.3 mmol/L (3.5-5.1); Protein, Total 5.2 g/dL (5.8-8.1); Sodium 136 mmol/L (136-145)
[2023-02-14 02:35] LABS: PTT 38.2 sec (22.0-33.0)
[2023-02-14 02:37] LABS: Band 10 % (5-11); Lymphocytes 6 % (21-51); Metamyelocyte 7 % (0-0); Monocytes 2 % (0-10); Neutrophil 74 % (42-75)
[2023-02-14 02:38] LABS: Anisocytosis SLIGHT = 6-15 cells (100X) (0-5/hpf); Platelet Adequacy Comment Appears Adequate
[2023-02-14] MEDS: Meropenem 1 GM in Sodium Chloride 0.9% 100 ML IVPB SCH ×2 (03:15→15:28)
[2023-02-14 03:30] LABS: Actual Bicarbonate (HCO3a) 20.8 mEq/L (22-28); Base Excess (BEa) -3.5 mEq/L (-2.0 to +3.0); CO2 Tension 34.3 mmHg (35.0-45.0); Carboxyhemoglobin (COHb) 0.5 gm% (0.0-3.0); Hematocrit-ABG 26 % (42.0-52.0); Potassium - ABG Lab 5.06 mmol/L (3.70-5.30); Puncture Site Arterial Line; pH, Arterial 7.401 (7.35-7.45)
[2023-02-14 03:32] LABS: ALV-art Gradient 416.525 mmHg (0-20)
[2023-02-14] MEDS: FENTANYL 2,000MCG/100-0.9%NACL 100 ML IVPB SCH ×3 (03:40→23:00)
[2023-02-14] MEDS: Vasopressin 20 UNITS, Admixture Fee 1 EACH in Sodium Chloride 0.9% 50 ML IV SCH ×2 (03:44→12:42)
[2023-02-14] MEDS ORDERED: Sodium Chloride 0.9% 1,000 ML IV SCH ×2 (04:00→07:30)
[2023-02-14] MEDS: Pantoprazole 40 MG VIAL IVP SCH ×2 (07:25→20:01)
[2023-02-14] MEDS ORDERED: SODIUM CHLORIDE FS SCH (08:00)
[2023-02-14] MEDS ORDERED: ADMIXTURE FEE FS SCH (08:00)
[2023-02-14] MEDS ORDERED: CALCIUM CHLORIDE FS SCH (08:00)
[2023-02-14] MEDS: Carvedilol 12.5 MG TAB PO SCH ×2 (08:28→16:26)
[2023-02-14] MEDS: hydrALAZINE 25 MG TAB PO SCH ×3 (08:28→20:01)
[2023-02-14] MEDS: NIFEdipine XL 90 MG TAB PO SCH (08:28)
[2023-02-14] MEDS: Furosemide 40 MG TAB PO SCH (08:29)
[2023-02-14 09:13] LABS: ALV-art Gradient 322.525 mmHg (0-20); Actual Bicarbonate (HCO3a) 21.7 mEq/L (22-28); CO2 Tension 42.1 mmHg (35.0-45.0); Calcium, Ionized (arterial) 1.08 mmol/L (1.12-1.30); Carboxyhemoglobin (COHb) 0.4 gm% (0.0-3.0); Hematocrit-ABG 25 % (42.0-52.0); Hemoglobin (Hb) 8.5 g/dL (14.0-18.0); O2 Tension (PaO2), arterial 88.3 mmHg (> 80.0); Potassium - ABG Lab 4.84 mmol/L (3.70-5.30); Puncture Site Arterial Line
[2023-02-14] MEDS: Hydrocortisone Sod Succ/PF 100 mg/2 ml Vial IVP SCH ×3 (09:33→20:01)
[2023-02-14] MEDS ORDERED: Sodium Chloride 0.9% 1,000 ML IV ONE (12:30)
[2023-02-14] MEDS ORDERED: Sodium Chloride 0.9% 500 ML IV SCH (13:00)
[2023-02-14] MEDS: NOREPINEPHRINE 8 MG/250 ML-D5W 250 ML IVPB SCH (13:39)
[2023-02-14] MEDS: Albumin 25% 25 GM/100 ML BOT IVPB SCH ×2 (14:40→20:01)
[2023-02-14 18:09] LABS: Hemoglobin 7.8 g/dL (13.5-17.5); Mean Corpuscular HGB CONC 31.1 g/dL (32.0-36.0); Mean Corpuscular Hemoglobin 26.8 pg (27.0-33.0); Mean Corpuscular Volume 86.3 fl (81.2-95.1); Mean Platelet Volume 10.3 fl (7.4-10.4); Platelet Count 202 10x3/uL (150-450); RBC Distribution Width 19.7 % (11.5-14.5); Red Blood Cell (RBC) Count 2.91 10x6/uL (4.32-5.72); White Blood Cell (WBC) Count 4.8 10x3/uL (3.5-10.5)
[2023-02-14 18:25] LABS: Anion Gap 15 mmol/L (10-20); BUN (Urea Nitrogen) 80 mg/dL (8.4-25.7); Calc. Creatinine Clearance 64 mL/min (70-130); Calcium 8.2 mg/dL (7.8-10.44); Carbon Dioxide 27 mmol/L (23-31); Chloride 101 mmol/L (98-107); Estimated GFR 29; Glucose 150 mg/dL (80-115); Potassium 4.7 mmol/L (3.5-5.1); Sodium 138 mmol/L (136-145)
[2023-02-14 19:17] LABS: Band 49 % (5-11); Lymphocytes 6 % (21-51); Monocytes 5 % (0-10)
[2023-02-14 19:18] LABS: Neutrophil 40 % (42-75)
[2023-02-14 19:19] LABS: Anisocytosis SLIGHT = 6-15 cells (100X) (0-5/hpf); Elliptocytes SLIGHT = 2-5 cells (100X) (0-1/hpf); Hypochromia SLIGHT = 6-15 cells (100X) (0-5/hpf); Microcytosis SLIGHT = 6-15 cells (100X) (0-5/hpf); Ovalocytes SLIGHT = 2-5 cells (100X) (0-1/hpf); Poikilocytosis SLIGHT = 6-15 cells (100X) (0-5/hpf); Polychromasia SLIGHT = 2-3 cells (100X) (0-2/hpf)
[2023-02-14 19:20] LABS: Large Platelets SLIGHT (None Seen); Platelet Clumps SLIGHT
[2023-02-14 19:21] LABS: MDiff Complete? YES; Platelet Adequacy Comment Appears Adequate; Toxic Granulation SLIGHT
[2023-02-14] MEDS: Vancomycin 1.5 GRAM/300 ML BAG 1.5 GM in Premix Bag 1 BAG IVPB SCH (20:07)
[2023-02-15] MEDS: Ipratropium/Albuterol 3 ML NEB NEB SCH ×4 (00:40→20:05)
[2023-02-15] MEDS: Albumin 25% 25 GM/100 ML BOT IVPB SCH ×4 (01:06→21:17)
[2023-02-15] MEDS: Meropenem 1 GM in Sodium Chloride 0.9% 100 ML IVPB SCH ×2 (02:02→14:18)
[2023-02-15] MEDS: Hydrocortisone Sod Succ/PF 100 mg/2 ml Vial IVP SCH ×4 (02:02→21:17)
[2023-02-15 02:35] LABS: Hemoglobin 7.1 g/dL (13.5-17.5); Mean Corpuscular HGB CONC 30.6 g/dL (32.0-36.0); Mean Corpuscular Hemoglobin 26.6 pg (27.0-33.0); Mean Corpuscular Volume 86.9 fl (81.2-95.1); Mean Platelet Volume 10.6 fl (7.4-10.4); Platelet Count 198 10x3/uL (150-450); RBC Distribution Width 19.9 % (11.5-14.5); Red Blood Cell (RBC) Count 2.67 10x6/uL (4.32-5.72); White Blood Cell (WBC) Count 4.2 10x3/uL (3.5-10.5)
[2023-02-15 02:37] LABS: MDiff Complete? YES
[2023-02-15 02:42] LABS: Anion Gap 16 mmol/L (10-20); BUN (Urea Nitrogen) 80 mg/dL (8.4-25.7); Calc. Creatinine Clearance 63 mL/min (70-130); Calcium 8.3 mg/dL (7.8-10.44); Carbon Dioxide 26 mmol/L (23-31); Chloride 102 mmol/L (98-107); Estimated GFR 29; Glucose 128 mg/dL (80-115); Potassium 4.5 mmol/L (3.5-5.1); Sodium 139 mmol/L (136-145)
[2023-02-15 02:48] LABS: INR-International Normal Ratio 3.5; Prothrombin Time 37.1 sec (9.5-12.1)
[2023-02-15 03:18] LABS: Band 14 % (5-11); Lymphocytes 5 % (21-51); Metamyelocyte 1 % (0-0); Monocytes 7 % (0-10); Neutrophil 73 % (42-75); Nucleated RBC (Manual Ct) 1 % (0)
[2023-02-15 03:19] LABS: Hypochromia SLIGHT = 6-15 cells (100X) (0-5/hpf); Platelet Adequacy Comment Appears Adequate
[2023-02-15] MEDS: Sodium Chloride 0.9% 1,000 ML IV SCH ×2 (05:17→12:17)
[2023-02-15] MEDS: Pantoprazole 40 MG VIAL IVP SCH ×2 (07:49→21:18)
[2023-02-15] MEDS: Carvedilol 12.5 MG TAB PO SCH ×2 (07:49→16:08)
[2023-02-15] MEDS: NIFEdipine XL 90 MG TAB PO SCH (07:50)
[2023-02-15] MEDS: hydrALAZINE 25 MG TAB PO SCH ×3 (07:50→21:18)
[2023-02-15] MEDS ORDERED: Rocuronium Bromide 10 MG/ML (10ML VIAL) ONE (09:17)
[2023-02-15] MEDS ORDERED: PROPOFOL 20 ML ONE (09:17)
[2023-02-15] MEDS ORDERED: PHENYLEPHRINE-NS 100 MCG/ML 10 ML SYRINGE ONE (09:19)
[2023-02-15] MEDS ORDERED: Vasopressin 20 UNITS/ML VIAL ONE (09:21)
[2023-02-15] MEDS ORDERED: Fentanyl 250 MCG/5 ML VIAL ONE (10:33)
[2023-02-15] MEDS: FENTANYL 2,000MCG/100-0.9%NACL 100 ML IVPB SCH ×2 (12:08→23:27)
[2023-02-15] MEDS: Sodium Chloride 0.45% 1,000 ML IV SCH (12:55)
[2023-02-15 16:16] LABS: #Monocytes 0.5 10x3/uL (0.0-1.1); #Neutrophils 6.4 10x3/uL (1.5-8.4); %Basophils 0.1 % (0.0-2.0); %Eosinophils 0.1 % (0.0-6.0); %Lymphocytes 3.9 % (18.0-47.0); %Monocytes 6.2 % (0.0-10.0); %Neutrophils 88.6 % (40.0-75.0); Hemoglobin 9.7 g/dL (13.5-17.5); Mean Corpuscular HGB CONC 30.6 g/dL (32.0-36.0); Mean Corpuscular Hemoglobin 26.9 pg (27.0-33.0); Mean Corpuscular Volume 87.8 fl (81.2-95.1); Platelet Count 221 10x3/uL (150-450); RBC Distribution Width 19.5 % (11.5-14.5); Red Blood Cell (RBC) Count 3.61 10x6/uL (4.32-5.72); White Blood Cell (WBC) Count 7.2 10x3/uL (3.5-10.5)
[2023-02-15 16:41] LABS: Anion Gap 16 mmol/L (10-20); BUN (Urea Nitrogen) 77 mg/dL (8.4-25.7); Calc. Creatinine Clearance 63 mL/min (70-130); Calcium 8.6 mg/dL (7.8-10.44); Carbon Dioxide 25 mmol/L (23-31); Chloride 103 mmol/L (98-107); Estimated GFR 29; Glucose 111 mg/dL (80-115); Potassium 4.6 mmol/L (3.5-5.1); Sodium 139 mmol/L (136-145)
[2023-02-15] MEDS ORDERED: VANCOMYCIN 1.25 GM/250 ML BAG 1.25 GM in Premix Bag 1 BAG IVPB SCH (21:00)
[2023-02-16] MEDS: Lorazepam 2 MG/ML VIAL SLOW IVP PRN (01:15)
[2023-02-16] MEDS: Ipratropium/Albuterol 3 ML NEB NEB SCH ×4 (01:30→19:45)
[2023-02-16] MEDS: Albumin 25% 25 GM/100 ML BOT IVPB SCH ×2 (02:49→09:20)
[2023-02-16] MEDS: Meropenem 1 GM in Sodium Chloride 0.9% 100 ML IVPB SCH ×2 (02:50→14:28)
[2023-02-16] MEDS: Hydrocortisone Sod Succ/PF 100 mg/2 ml Vial IVP SCH ×4 (02:51→21:31)
[2023-02-16] MEDS: Sodium Chloride 0.45% 1,000 ML IV SCH ×2 (02:52→16:41)
[2023-02-16 03:40] LABS: Hemoglobin 8.5 g/dL (13.5-17.5); Mean Corpuscular HGB CONC 30.1 g/dL (32.0-36.0); Mean Corpuscular Hemoglobin 26.6 pg (27.0-33.0); Mean Corpuscular Volume 88.1 fl (81.2-95.1); Mean Platelet Volume 10.3 fl (7.4-10.4); Platelet Count 199 10x3/uL (150-450); RBC Distribution Width 19.3 % (11.5-14.5); White Blood Cell (WBC) Count 5.3 10x3/uL (3.5-10.5)
[2023-02-16 03:42] LABS: MDiff Complete? YES
[2023-02-16 03:47] LABS: Anion Gap 18 mmol/L (10-20); BUN (Urea Nitrogen) 78 mg/dL (8.4-25.7); Calc. Creatinine Clearance 64 mL/min (70-130); Calcium 8.4 mg/dL (7.8-10.44); Carbon Dioxide 24 mmol/L (23-31); Chloride 105 mmol/L (98-107); Estimated GFR 29; Glucose 101 mg/dL (80-115); Phosphorus 4.9 mg/dL (2.3-4.7); Potassium 4.5 mmol/L (3.5-5.1); Sodium 142 mmol/L (136-145)
[2023-02-16 03:52] LABS: INR-International Normal Ratio 2.9; Prothrombin Time 30.8 sec (9.5-12.1)
[2023-02-16 04:35] LABS: Band 14 % (5-11); Hypochromia SLIGHT = 6-15 cells (100X) (0-5/hpf); Lymphocytes 4 % (21-51); Metamyelocyte 2 % (0-0); Microcytosis SLIGHT = 6-15 cells (100X) (0-5/hpf); Monocytes 8 % (0-10); Neutrophil 72 % (42-75); Platelet Adequacy Comment Appears Adequate
[2023-02-16] MEDS: NIFEdipine XL 90 MG TAB PO SCH (09:18)
[2023-02-16] MEDS: hydrALAZINE 25 MG TAB PO SCH ×3 (09:20→19:55)
[2023-02-16] MEDS: Carvedilol 12.5 MG TAB PO SCH ×2 (09:20→17:09)
[2023-02-16] MEDS: Pantoprazole 40 MG VIAL IVP SCH ×2 (09:21→21:34)
[2023-02-16] MEDS: FENTANYL 2,000MCG/100-0.9%NACL 100 ML IVPB SCH (10:44)
[2023-02-16] MEDS: Dexmedetomidine In 0.9 % NaCl 400 MCG in Premix Bag 1 BAG IVPB SCH ×2 (13:58→21:32)
[2023-02-16 14:20] LABS: ALV-art Gradient 137.425 mmHg (0-20); Base Excess (BEa) -3.2 mEq/L (-2.0 to +3.0); CO2 Tension 53.1 mmHg (35.0-45.0); Calcium, Ionized (arterial) 1.06 mmol/L (1.12-1.30); Carboxyhemoglobin (COHb) 0.9 gm% (0.0-3.0); Hematocrit-ABG 32 % (42.0-52.0); Hemoglobin (Hb) 10.9 g/dL (14.0-18.0); O2 Tension (PaO2), arterial 81.4 mmHg (> 80.0); Potassium - ABG Lab 4.51 mmol/L (3.70-5.30); Puncture Site Arterial Line; pH, Arterial 7.273 (7.35-7.45)
[2023-02-16 17:12] LABS: Hemoglobin 9.2 g/dL (13.5-17.5); Mean Corpuscular HGB CONC 30.6 g/dL (32.0-36.0); Mean Corpuscular Hemoglobin 26.7 pg (27.0-33.0); Mean Corpuscular Volume 87.5 fl (81.2-95.1); Mean Platelet Volume 9.9 fl (7.4-10.4); Platelet Count 222 10x3/uL (150-450); RBC Distribution Width 19.6 % (11.5-14.5); Red Blood Cell (RBC) Count 3.44 10x6/uL (4.32-5.72); White Blood Cell (WBC) Count 6.8 10x3/uL (3.5-10.5)
[2023-02-16] MEDS ORDERED: D15W-AA 5% with Lytes 2,000 ML IV SCH (18:00)
[2023-02-16] MEDS: Fat Emulsion 250 ML IVPB SCH (18:03)
[2023-02-16] MEDS: Heparin 25,000 units/D5W 500 ML IVPB SCH (19:54)
[2023-02-17] MEDS: Ipratropium/Albuterol 3 ML NEB NEB SCH ×4 (00:55→18:49)
[2023-02-17] MEDS: Hydrocortisone Sod Succ/PF 100 mg/2 ml Vial IVP SCH ×3 (03:49→20:42)
[2023-02-17] MEDS: Meropenem 1 GM in Sodium Chloride 0.9% 100 ML IVPB SCH ×2 (03:50→14:46)
[2023-02-17 06:07] LABS: #Monocytes 0.4 10x3/uL (0.0-1.1); #Neutrophils 5.7 10x3/uL (1.5-8.4); %Basophils 0.3 % (0.0-2.0); %Eosinophils 0.2 % (0.0-6.0); %Monocytes 5.8 % (0.0-10.0); %Neutrophils 87.6 % (40.0-75.0); Hemoglobin 9.5 g/dL (13.5-17.5); Mean Corpuscular Hemoglobin 27.1 pg (27.0-33.0); Mean Corpuscular Volume 87.4 fl (81.2-95.1); Mean Platelet Volume 9.4 fl (7.4-10.4); Platelet Count 218 10x3/uL (150-450); RBC Distribution Width 19.1 % (11.5-14.5); White Blood Cell (WBC) Count 6.6 10x3/uL (3.5-10.5)
[2023-02-17 06:15] LABS: INR-International Normal Ratio 2.5; Prothrombin Time 26.1 sec (9.5-12.1)
[2023-02-17 06:16] LABS: Anion Gap 16 mmol/L (10-20); BUN (Urea Nitrogen) 79 mg/dL (8.4-25.7); Calc. Creatinine Clearance 69 mL/min (70-130); Calcium 8.5 mg/dL (7.8-10.44); Carbon Dioxide 23 mmol/L (23-31); Chloride 106 mmol/L (98-107); Estimated GFR 32; Glucose 231 mg/dL (80-115); Potassium 4.3 mmol/L (3.5-5.1); Sodium 141 mmol/L (136-145)
[2023-02-17] MEDS: Sodium Chloride 0.45% 1,000 ML IV SCH ×2 (07:23→18:23)
[2023-02-17] MEDS: Pantoprazole 40 MG VIAL IVP SCH ×2 (08:23→20:40)
[2023-02-17] MEDS: hydrALAZINE 25 MG TAB PO SCH ×3 (08:24→20:29)
[2023-02-17] MEDS: Carvedilol 12.5 MG TAB PO SCH ×2 (08:24→18:23)
[2023-02-17] MEDS: NIFEdipine XL 90 MG TAB PO SCH (08:24)
[2023-02-17] MEDS: Labetalol HCl 100 MG/20 ML VIAL SLOW IVP PRN (09:07)
[2023-02-17] MEDS ORDERED: Furosemide 40 MG/4 ML VIAL IVP SCH (10:30)
[2023-02-17] MEDS: Metoprolol Tartrate 5 MG/5 ML VIAL IVP PRN (12:22)
[2023-02-17] MEDS: HumaLOG 300 UNITS/3 ML VIAL SC PRN ×2 (12:48→18:30)
[2023-02-17] MEDS: Furosemide 40 MG/4 ML VIAL IVP SCH (13:59)
[2023-02-17] MEDS ORDERED: Furosemide 40 MG TAB PO SCH (14:00)
[2023-02-17] MEDS: FOLIC ACID IV SCH (14:46)
[2023-02-17] MEDS: THIAMINE HCL IV SCH (14:46)
[2023-02-17] MEDS: Dexmedetomidine In 0.9 % NaCl 400 MCG in Premix Bag 1 BAG IVPB SCH ×2 (14:46→23:27)
[2023-02-17] MEDS: [UNRECOGNIZED DRUG - OTHER] IV SCH (14:46)
[2023-02-17] MEDS: MULTIVITAMINS IV SCH (14:46)
[2023-02-17] MEDS: hydrALAZINE 20 MG/ML VIAL SLOW IVP PRN ×2 (15:16→20:39)
[2023-02-17] MEDS ORDERED: Rocuronium Bromide 10 MG/ML (10ML VIAL) ONE (18:47)
[2023-02-17] MEDS: Morphine 2 MG/ML VIAL SLOW IVP PRN (22:35)
[2023-02-17] MEDS: Lorazepam 2 MG/ML VIAL SLOW IVP PRN (22:42)
[2023-02-17] MEDS: Heparin 25,000 units/D5W 500 ML IVPB SCH (23:29)
[2023-02-18] MEDS: Ipratropium/Albuterol 3 ML NEB NEB SCH ×4 (00:05→19:15)
[2023-02-18] MEDS: Meropenem 1 GM in Sodium Chloride 0.9% 100 ML IVPB SCH ×3 (03:58→20:36)
[2023-02-18] MEDS: Morphine 2 MG/ML VIAL SLOW IVP PRN (04:40)
[2023-02-18 04:51] LABS: Hemoglobin 10.2 g/dL (13.5-17.5); Mean Corpuscular HGB CONC 30.4 g/dL (32.0-36.0); Mean Corpuscular Hemoglobin 26.6 pg (27.0-33.0); Mean Corpuscular Volume 87.5 fl (81.2-95.1); Mean Platelet Volume 10.3 fl (7.4-10.4); Platelet Count 240 10x3/uL (150-450); RBC Distribution Width 18.6 % (11.5-14.5); Red Blood Cell (RBC) Count 3.83 10x6/uL (4.32-5.72); White Blood Cell (WBC) Count 5.8 10x3/uL (3.5-10.5)
[2023-02-18 04:52] LABS: MDiff Complete? YES
[2023-02-18 04:59] LABS: Anion Gap 17 mmol/L (10-20); BUN (Urea Nitrogen) 84 mg/dL (8.4-25.7); Calc. Creatinine Clearance 86 mL/min (70-130); Calcium 8.6 mg/dL (7.8-10.44); Carbon Dioxide 25 mmol/L (23-31); Chloride 108 mmol/L (98-107); Estimated GFR 41; Glucose 226 mg/dL (80-115); Potassium 4.3 mmol/L (3.5-5.1); Sodium 146 mmol/L (136-145)
[2023-02-18] MEDS: HumaLOG 300 UNITS/3 ML VIAL SC PRN ×3 (05:00→23:03)
[2023-02-18 05:24] LABS: Platelet Adequacy Comment Appears Adequate
[2023-02-18 05:29] LABS: Microcytosis SLIGHT = 6-15 cells (100X) (0-5/hpf)
[2023-02-18 06:01] LABS: Band 11 % (5-11); Lymphocytes 6 % (21-51); Monocytes 8 % (0-10); Neutrophil 75 % (42-75)
[2023-02-18] MEDS: Lorazepam 2 MG/ML VIAL SLOW IVP PRN (06:46)
[2023-02-18] MEDS: Sodium Chloride 0.45% 1,000 ML IV SCH (07:34)
[2023-02-18] MEDS: NIFEdipine XL 90 MG TAB PO SCH (08:16)
[2023-02-18] MEDS: hydrALAZINE 25 MG TAB PO SCH (08:16)
[2023-02-18] MEDS: Carvedilol 12.5 MG TAB PO SCH (08:16)
[2023-02-18] MEDS: Dexmedetomidine In 0.9 % NaCl 400 MCG in Premix Bag 1 BAG IVPB SCH (08:40)
[2023-02-18] MEDS: Furosemide 40 MG/4 ML VIAL IVP SCH ×2 (08:53→15:09)
[2023-02-18] MEDS: Hydrocortisone Sod Succ/PF 100 mg/2 ml Vial IVP SCH ×2 (08:54→20:37)
[2023-02-18] MEDS: Pantoprazole 40 MG VIAL IVP SCH ×2 (08:55→20:37)
[2023-02-18] MEDS: Labetalol HCl 100 MG/20 ML VIAL SLOW IVP PRN (09:34)
[2023-02-18] MEDS ORDERED: Dexmedetomidine In 0.9 % NaCl 100 ML IVPB SCH (09:45)
[2023-02-18] MEDS: dilTIAZem 125 MG in Sodium Chloride 0.9% 100 ML IVPB SCH (10:01)
[2023-02-18] MEDS: FENTANYL 2,000MCG/100-0.9%NACL 100 ML IVPB SCH ×2 (11:30→22:36)
[2023-02-18] MEDS: Propofol 1,000 MG/100 ML VIAL IV PRN (13:07)
[2023-02-18] MEDS: Heparin 10,000 UNITS/ 10 ML VIAL SLOW IVP SCH ×2 (13:37→20:52)
[2023-02-18 13:45] LABS: Actual Bicarbonate (HCO3a) 29.3 mEq/L (22-28); Base Excess (BEa) 1.1 mEq/L (-2.0 to +3.0); CO2 Tension 65.2 mmHg (35.0-45.0); Calcium, Ionized (arterial) 1.13 mmol/L (1.12-1.30); Carboxyhemoglobin (COHb) 0.9 gm% (0.0-3.0); Hematocrit-ABG 36 % (42.0-52.0); Hemoglobin (Hb) 12.1 g/dL (14.0-18.0); O2 Tension (PaO2), arterial 92.3 mmHg (> 80.0); Potassium - ABG Lab 3.88 mmol/L (3.70-5.30); Puncture Site Arterial Line; pH, Arterial 7.271 (7.35-7.45)
[2023-02-18 13:46] LABS: Base Excess (BEa) -0.6 mEq/L (-2.0 to +3.0); Calcium, Ionized (arterial) 1.11 mmol/L (1.12-1.30); Carboxyhemoglobin (COHb) 1.1 gm% (0.0-3.0); Hematocrit-ABG 35 % (42.0-52.0); Hemoglobin (Hb) 11.8 g/dL (14.0-18.0); O2 Tension (PaO2), arterial 76.5 mmHg (> 80.0); Potassium - ABG Lab 3.83 mmol/L (3.70-5.30); Puncture Site Arterial Line; pH, Arterial 7.279 (7.35-7.45)
[2023-02-18] MEDS: [UNRECOGNIZED DRUG - OTHER] IV SCH (15:10)
[2023-02-18] MEDS: FOLIC ACID IV SCH (15:10)
[2023-02-18] MEDS: MULTIVITAMINS IV SCH (15:10)
[2023-02-18] MEDS: THIAMINE HCL IV SCH (15:10)
[2023-02-18] MEDS: Heparin 25,000 units/D5W 500 ML IVPB SCH (18:31)
[2023-02-19] MEDS: Ipratropium/Albuterol 3 ML NEB NEB SCH ×4 (00:40→19:05)
[2023-02-19] MEDS: Meropenem 1 GM in Sodium Chloride 0.9% 100 ML IVPB SCH ×2 (03:16→14:24)
[2023-02-19] MEDS: Propofol 1,000 MG/100 ML VIAL IV PRN ×2 (03:23→21:47)
[2023-02-19 03:46] LABS: Anion Gap 15 mmol/L (10-20); BUN (Urea Nitrogen) 87 mg/dL (8.4-25.7); Calc. Creatinine Clearance 96 mL/min (70-130); Calcium 8.3 mg/dL (7.8-10.44); Carbon Dioxide 29 mmol/L (23-31); Chloride 106 mmol/L (98-107); Estimated GFR 48; Glucose 263 mg/dL (80-115); Magnesium 1.8 mg/dL (1.6-2.6); Phosphorus 2.9 mg/dL (2.3-4.7); Potassium 3.8 mmol/L (3.5-5.1); Sodium 146 mmol/L (136-145)
[2023-02-19 03:59] LABS: Hemoglobin 9.8 g/dL (13.5-17.5); Mean Corpuscular HGB CONC 30.6 g/dL (32.0-36.0); Mean Corpuscular Hemoglobin 26.3 pg (27.0-33.0); Mean Corpuscular Volume 85.8 fl (81.2-95.1); Platelet Count 262 10x3/uL (150-450); RBC Distribution Width 18.6 % (11.5-14.5); Red Blood Cell (RBC) Count 3.73 10x6/uL (4.32-5.72); White Blood Cell (WBC) Count 6.2 10x3/uL (3.5-10.5)
[2023-02-19 04:37] LABS: MDiff Complete? YES
[2023-02-19] MEDS: dilTIAZem 125 MG in Sodium Chloride 0.9% 100 ML IVPB SCH (04:47)
[2023-02-19 05:36] LABS: Mean Platelet Volume 10.3 fl (7.4-10.4)
[2023-02-19 05:58] LABS: Band 1 % (5-11); Eosinophils 1 % (0-10); Lymphocytes 3 % (21-51); Monocytes 11 % (0-10); Neutrophil 83 % (42-75); Reactive Lymphocytes 1 % (0-10)
[2023-02-19 06:01] LABS: Hypochromia SLIGHT = 6-15 cells (100X) (0-5/hpf); Macrocytosis SLIGHT = 6-15 cells (100X) (0-5/hpf); Platelet Adequacy Comment Appears Adequate
[2023-02-19] MEDS: HumaLOG 300 UNITS/3 ML VIAL SC PRN ×2 (06:21→18:28)
[2023-02-19] MEDS ORDERED: Heparin 10,000 UNITS/ 10 ML VIAL SLOW IVP SCH (08:00)
[2023-02-19] MEDS: Furosemide 40 MG/4 ML VIAL IVP SCH ×2 (08:12→14:31)
[2023-02-19] MEDS: Hydrocortisone Sod Succ/PF 100 mg/2 ml Vial IVP SCH (08:13)
[2023-02-19] MEDS: NIFEdipine XL 90 MG TAB PO SCH (08:15)
[2023-02-19] MEDS: Lantus 1000 UNITS/10 ML VIAL SC SCH (08:15)
[2023-02-19] MEDS: Pantoprazole 40 MG VIAL IVP SCH ×2 (08:16→20:58)
[2023-02-19] MEDS: Heparin 25,000 units/D5W 500 ML IV SCH ×2 (08:18→21:12)
[2023-02-19 09:14] LABS: ALT (SGPT) 7 U/L (8-55); AST (SGOT) 12 U/L (5-34); Albumin 2.9 g/dL (3.4-4.8); Alkaline Phosphatase 55 U/L (40-110); Anion Gap 18 mmol/L (10-20); BUN (Urea Nitrogen) 85 mg/dL (8.4-25.7); Bilirubin, Total 1.3 mg/dL (0.2-1.2); Calc. Creatinine Clearance 92 mL/min (70-130); Calcium 8.2 mg/dL (7.8-10.44); Carbon Dioxide 25 mmol/L (23-31); Chloride 107 mmol/L (98-107); Estimated GFR 46; Glucose 229 mg/dL (80-115); Potassium 3.6 mmol/L (3.5-5.1); Protein, Total 4.9 g/dL (5.8-8.1); Sodium 146 mmol/L (136-145)
[2023-02-19] MEDS: FENTANYL 2,000MCG/100-0.9%NACL 100 ML IVPB SCH (09:48)
[2023-02-19] MEDS ORDERED: Thiamine HCl 200 MG/2 ML VIAL ONE (14:27)
[2023-02-19] MEDS ORDERED: Magnesium Sulfate 1 GM/2 ML VIAL ONE (14:27)
[2023-02-19] MEDS ORDERED: MULTIVITAMINS IV SCH (15:00)
[2023-02-19] MEDS ORDERED: THIAMINE HCL IV SCH (15:00)
[2023-02-19] MEDS ORDERED: [UNRECOGNIZED DRUG - OTHER] IV SCH (15:00)
[2023-02-19] MEDS ORDERED: FOLIC ACID IV SCH (15:00)
[2023-02-19] MEDS: Fat Emulsion 250 ML IVPB SCH (17:31)
[2023-02-20] MEDS: HumaLOG 300 UNITS/3 ML VIAL SC PRN ×4 (01:27→16:09)
[2023-02-20] MEDS: FENTANYL 2,000MCG/100-0.9%NACL 100 ML IVPB SCH ×2 (01:28→17:21)
[2023-02-20] MEDS: Ipratropium/Albuterol 3 ML NEB NEB SCH ×4 (01:45→19:23)
[2023-02-20 04:18] LABS: Actual Bicarbonate (HCO3a) 30.4 mEq/L (22-28); Base Excess (BEa) 6.5 mEq/L (-2.0 to +3.0); Calcium, Ionized (arterial) 1.08 mmol/L (1.12-1.30); Carboxyhemoglobin (COHb) 0.3 gm% (0.0-3.0); Hematocrit-ABG 31 % (42.0-52.0); Hemoglobin (Hb) 10.5 g/dL (14.0-18.0); O2 Tension (PaO2), arterial 86.4 mmHg (> 80.0); Potassium - ABG Lab 3.53 mmol/L (3.70-5.30); Puncture Site Arterial Line; pH, Arterial 7.488 (7.35-7.45)
[2023-02-20 04:51] LABS: Hemoglobin 9.7 g/dL (13.5-17.5); Mean Corpuscular HGB CONC 31.3 g/dL (32.0-36.0); Mean Corpuscular Hemoglobin 26.6 pg (27.0-33.0); Mean Corpuscular Volume 85.2 fl (81.2-95.1); Mean Platelet Volume 10.2 fl (7.4-10.4); Platelet Count 264 10x3/uL (150-450); RBC Distribution Width 19.1 % (11.5-14.5); Red Blood Cell (RBC) Count 3.64 10x6/uL (4.32-5.72); White Blood Cell (WBC) Count 5.8 10x3/uL (3.5-10.5)
[2023-02-20 04:52] LABS: MDiff Complete? YES
[2023-02-20 05:57] VITALS: BMI 41.1
[2023-02-20 06:03] LABS: Band 3 % (5-11); Eosinophils 1 % (0-10); Neutrophil 67 % (42-75); Reactive Lymphocytes 3 % (0-10)
[2023-02-20 06:08] LABS: Lymphocytes 11 % (21-51); Monocytes 15 % (0-10)
[2023-02-20 06:11] LABS: Hypochromia SLIGHT = 6-15 cells (100X) (0-5/hpf); Microcytosis SLIGHT = 6-15 cells (100X) (0-5/hpf); Platelet Adequacy Comment Appears Adequate; Schistocytes SLIGHT = 2-5 cells (100X) (0-1/hpf)
[2023-02-20] MEDS: NIFEdipine XL 90 MG TAB PO SCH (08:13)
[2023-02-20] MEDS: Furosemide 40 MG/4 ML VIAL IVP SCH ×2 (08:45→14:41)
[2023-02-20] MEDS: Hydrocortisone Sod Succ/PF 100 mg/2 ml Vial IVP SCH (08:45)
[2023-02-20] MEDS ORDERED: Metoprolol Tartrate 5 MG/5 ML VIAL IVP PRN (08:45)
[2023-02-20] MEDS: Lantus 1000 UNITS/10 ML VIAL SC SCH (08:46)
[2023-02-20] MEDS: Pantoprazole 40 MG VIAL IVP SCH ×2 (08:56→20:32)
[2023-02-20] MEDS ORDERED: Metoprolol Tartrate 5 MG/5 ML VIAL IVP SCH (09:00)
[2023-02-20] MEDS: Heparin 25,000 units/D5W 500 ML IV SCH ×2 (10:08→22:37)
[2023-02-20 10:23] LABS: ALT (SGPT) 13 U/L (8-55); AST (SGOT) 25 U/L (5-34); Albumin 2.9 g/dL (3.4-4.8); Alkaline Phosphatase 68 U/L (40-110); Anion Gap 16 mmol/L (10-20); BUN (Urea Nitrogen) 88 mg/dL (8.4-25.7); Bilirubin, Total 1.7 mg/dL (0.2-1.2); Calc. Creatinine Clearance 90 mL/min (70-130); Calcium 8.5 mg/dL (7.8-10.44); Carbon Dioxide 30 mmol/L (23-31); Chloride 104 mmol/L (98-107); Estimated GFR 46; Globulin 2.3 g/dL (2.4-3.5); Glucose 252 mg/dL (80-115); Potassium 3.8 mmol/L (3.5-5.1); Protein, Total 5.2 g/dL (5.8-8.1); Sodium 146 mmol/L (136-145)
[2023-02-20] MEDS: MULTIVITAMINS IV SCH (14:32)
[2023-02-20] MEDS: TRACE ELEMENT IV SCH (14:32)
[2023-02-20] MEDS: THIAMINE HCL IV SCH (14:32)
[2023-02-20] MEDS: [UNRECOGNIZED DRUG - OTHER] IV SCH (14:32)
[2023-02-20] MEDS: Acetaminophen 325 MG TAB PER TUBE PRN (18:21)
[2023-02-20] MEDS: Metoprolol Tartrate 25 MG TAB PO SCH (20:31)
[2023-02-20] MEDS ORDERED: Lantus 1000 UNITS/10 ML VIAL SC SCH (21:00)
[2023-02-21] MEDS: HumaLOG 300 UNITS/3 ML VIAL SC PRN ×4 (00:17→17:55)
[2023-02-21] MEDS: Ipratropium/Albuterol 3 ML NEB NEB SCH ×4 (00:30→19:45)
[2023-02-21] MEDS: Propofol 1,000 MG/100 ML VIAL IV PRN (02:50)
[2023-02-21] MEDS: Acetaminophen 325 MG TAB PER TUBE PRN ×2 (04:02→20:04)
[2023-02-21 04:54] LABS: ALT (SGPT) 19 U/L (8-55); AST (SGOT) 25 U/L (5-34); Albumin 2.7 g/dL (3.4-4.8); Alkaline Phosphatase 66 U/L (40-110); Anion Gap 18 mmol/L (10-20); BUN (Urea Nitrogen) 92 mg/dL (8.4-25.7); Bilirubin, Total 1.2 mg/dL (0.2-1.2); Calc. Creatinine Clearance 85 mL/min (70-130); Calcium 8.3 mg/dL (7.8-10.44); Carbon Dioxide 28 mmol/L (23-31); Chloride 103 mmol/L (98-107); Estimated GFR 42; Globulin 2.1 g/dL (2.4-3.5); Glucose 268 mg/dL (80-115); Potassium 3.7 mmol/L (3.5-5.1); Protein, Total 4.8 g/dL (5.8-8.1); Sodium 145 mmol/L (136-145)
[2023-02-21 05:15] LABS: Cardiac Risk 4.9 (Less than 4.5); Cholesterol 88 mg/dl (< 200 Desired); HDL Cholesterol 18 mg/dL (>60 Neg Risk); LDL Cholesterol, Calculated 52 mg/dL; Phosphorus 3.4 mg/dL (2.3-4.7); Triglycerides 91 mg/dL (Less than 150)
[2023-02-21] MEDS: Furosemide 40 MG/4 ML VIAL IVP SCH ×2 (08:08→13:35)
[2023-02-21] MEDS: Hydrocortisone Sod Succ/PF 100 mg/2 ml Vial IVP SCH (08:08)
[2023-02-21] MEDS: Pantoprazole 40 MG VIAL IVP SCH ×2 (08:09→21:04)
[2023-02-21] MEDS: Metoprolol Tartrate 25 MG TAB PO SCH ×2 (08:10→21:00)
[2023-02-21] MEDS: Lantus 1000 UNITS/10 ML VIAL SC SCH ×2 (08:12→21:04)
[2023-02-21] MEDS ORDERED: Polyethylene Glycol 3350 17 GM Packet PER TUBE SCH (09:00)
[2023-02-21] MEDS: Dexmedetomidine In 0.9 % NaCl 400 MCG in Premix Bag 1 BAG IVPB SCH ×4 (09:41→23:38)
[2023-02-21] MEDS ORDERED: QUEtiapine 100 MG TAB PO SCH ×2 (10:00→21:00)
[2023-02-21] MEDS: Heparin 25,000 units/D5W 500 ML IV SCH (12:35)
[2023-02-21] MEDS ORDERED: MULTIVITAMINS IV SCH (15:00)
[2023-02-21] MEDS ORDERED: THIAMINE HCL IV SCH (15:00)
[2023-02-21] MEDS ORDERED: [UNRECOGNIZED DRUG - OTHER] IV SCH (15:00)
[2023-02-21] MEDS ORDERED: TRACE ELEMENT IV SCH (15:00)
[2023-02-21] MEDS: [UNRECOGNIZED DRUG - OTHER] IV SCH (17:20)
[2023-02-21] MEDS: MULTIVITAMINS IV SCH (17:20)
[2023-02-21] MEDS: THIAMINE HCL IV SCH (17:20)
[2023-02-21] MEDS: TRACE ELEMENT IV SCH (17:20)
[2023-02-21] MEDS: Fat Emulsion 250 ML IVPB SCH (17:52)
[2023-02-21] MEDS: Lorazepam 2 MG/ML VIAL SLOW IVP PRN (19:40)
[2023-02-21 21:10] LABS: Bilirubin Neg (Negative); Blood, Urine 50 (Negative); Glucose, Urine (Dipstick) Normal (Negative); Ketone, Urine Negative (Negative); Leukocyte Negative (Negative); Nitrite Negative (Negative); Protein, Urine (Dipstick) 30 mg/dl (Neg-Trace); Specific Gravity, Urine 1.015 (1.005-1.030); Urobilinogen Normal mg/dL (Less than 2)
[2023-02-21] MEDS ORDERED: Sodium Chloride 0.9% 1,000 ML IV SCH (21:15)
[2023-02-21 21:39] LABS: Clarity Slightly Cloudy (Clear)
[2023-02-21 21:46] LABS: Bacteria/HPF None Seen HPF (None Seen); CAUTI Indications for Culture Fever or rigors; RBC/HPF 0-3 HPF (0-3); Squamous Epithelial 0-3 HPF (0-3); Urine Culture Reflex No No; WBC/HPF None Seen HPF (0-3)
[2023-02-21] MEDS ORDERED: Sodium Chloride 0.9% 500 ML IV SCH (23:30)
[2023-02-21] MEDS ORDERED: NOREPINEPHRINE 8 MG/250 ML-D5W 250 ML IVPB SCH (23:59)
[2023-02-22] MEDS: Ipratropium/Albuterol 3 ML NEB NEB SCH ×2 (00:35→07:30)
[2023-02-22] MEDS: HumaLOG 300 UNITS/3 ML VIAL SC PRN ×2 (00:42→05:59)
[2023-02-22] MEDS ORDERED: Acetaminophen 325 MG TAB PER TUBE PRN (01:15)
[2023-02-22] MEDS ORDERED: Amiodarone In Dextrose 150 MG in Premix Bag 1 BAG IVPB SCH (01:30)
[2023-02-22] MEDS: Dexmedetomidine In 0.9 % NaCl 400 MCG in Premix Bag 1 BAG IVPB SCH ×3 (01:41→09:30)
[2023-02-22] MEDS: Amiodarone In Dextrose 200 ML IVPB SCH ×2 (01:41→07:30)
[2023-02-22] MEDS: Heparin 25,000 units/D5W 500 ML IV SCH (02:24)
[2023-02-22] MEDS: Lorazepam 2 MG/ML VIAL SLOW IVP PRN ×2 (03:19→04:30)
[2023-02-22 05:10] LABS: Hemoglobin 13.1 g/dL (13.5-17.5); Red Blood Cell (RBC) Count 4.89 10x6/uL (4.32-5.72); White Blood Cell (WBC) Count 12.2 10x3/uL (3.5-10.5)
[2023-02-22 05:11] LABS: Mean Corpuscular HGB CONC 31.3 g/dL (32.0-36.0); Mean Corpuscular Hemoglobin 26.8 pg (27.0-33.0); Mean Corpuscular Volume 85.7 fl (81.2-95.1); Mean Platelet Volume 10.7 fl (7.4-10.4); Platelet Count 315 10x3/uL (150-450); RBC Distribution Width 20.4 % (11.5-14.5)
[2023-02-22 05:12] LABS: MDiff Complete? YES
[2023-02-22 05:18] LABS: Anion Gap 20 mmol/L (10-20); BUN (Urea Nitrogen) 101 mg/dL (8.4-25.7); Bilirubin, Total 1.8 mg/dL (0.2-1.2); Calc. Creatinine Clearance 73 mL/min (70-130); Calcium 8.1 mg/dL (7.8-10.44); Carbon Dioxide 26 mmol/L (23-31); Chloride 101 mmol/L (98-107); Estimated GFR 35; Glucose 314 mg/dL (80-115); Potassium 4.7 mmol/L (3.5-5.1); Protein, Total 4.9 g/dL (5.8-8.1); Sodium 142 mmol/L (136-145)
[2023-02-22 05:19] LABS: ALT (SGPT) 22 U/L (8-55); AST (SGOT) 27 U/L (5-34); Albumin 2.6 g/dL (3.4-4.8); Alkaline Phosphatase 63 U/L (40-110); Globulin 2.3 g/dL (2.4-3.5)
[2023-02-22 05:37] LABS: Band 25 % (5-11); Eosinophils 1 % (0-10); Lymphocytes 6 % (21-51); Monocytes 7 % (0-10); Neutrophil 61 % (42-75)
[2023-02-22 05:39] LABS: Anisocytosis SLIGHT = 6-15 cells (100X) (0-5/hpf); Macrocytosis SLIGHT = 6-15 cells (100X) (0-5/hpf); Microcytosis SLIGHT = 6-15 cells (100X) (0-5/hpf); Platelet Adequacy Comment Appears Adequate
[2023-02-22] MEDS ORDERED: VANCOMYCIN 1.25 GM/250 ML BAG IVPB SCH (06:15)
[2023-02-22] MEDS ORDERED: Meropenem 1 GM in Sodium Chloride 0.9% 100 ML IVPB SCH ×3 (07:00→16:00)
[2023-02-22] MEDS ORDERED: VANCOMYCIN 2 GRAM/400 ML BAG 2 GM in Premix Bag 1 BAG IVPB SCH (07:00)
[2023-02-22] MEDS ORDERED: HumaLOG 300 UNITS/3 ML VIAL SC PRN (08:15)
[2023-02-22] MEDS ORDERED: Albumin 25% 25 GM/100 ML BOT IVPB SCH (08:30)
[2023-02-22] MEDS ORDERED: Insulin NPH Human Isophane 100 UNITS/ML (10 ML VIAL) SC SCH (09:00)
[2023-02-22] MEDS ORDERED: Vasopressin 20 UNITS/ML VIAL ONE (09:05)
[2023-02-22 09:26] VITALS: TEMP 102.2
[2023-02-22] MEDS ORDERED: Vasopressin 20 UNITS, Admixture Fee 1 EACH in Sodium Chloride 0.9% 50 ML IV SCH (09:30)
[2023-02-22 10:43] VITALS: BP 122/77
[2023-02-23] MEDS ORDERED: Fat Emulsion 250 ML IVPB SCH (18:00)
== END 2023-02-22 11:22 | disposition hospice, inpatient (51) | DRG 870 ==
LOC: CSHERS 08:35 → CSHICU 10:21 → CSHTELE 02-03 12:07 → CSHIMCU 02-12 19:41
PROVIDERS: ADMIT Internal Medicine; ATTEND Family Medicine
PROC: 5A1955Z Respiratory Ventilation, Greater than 96 Consecutive Hours (ICD-10-PCS; principal; 2023-01-22)
PROC: 3E03329 Introduction of Other Anti-infective into Peripheral Vein, Percutaneous Approach (ICD-10-PCS; 2023-01-22)
PROC: 5A09357 Assistance with Respiratory Ventilation, Less than 24 Consecutive Hours, Continuous Positive Airway Pressure (ICD-10-PCS; 2023-01-26)
PROC: 5A0935A Assistance with Respiratory Ventilation, Less than 24 Consecutive Hours, High Flow/Velocity Cannula (ICD-10-PCS; 2023-01-27)
PROC: 30233N1 Transfusion of Nonautologous Red Blood Cells into Peripheral Vein, Percutaneous Approach (ICD-10-PCS; 2023-02-05)
PROC: 30233K1 Transfusion of Nonautologous Frozen Plasma into Peripheral Vein, Percutaneous Approach (ICD-10-PCS; 2023-02-13)
PROC: 4A133R1 Monitoring of Arterial Saturation, Peripheral, Percutaneous Approach (ICD-10-PCS; 2023-02-14)
DX: A41.9 Sepsis, unspecified organism (principal); I50.33 Acute on chronic diastolic (congestive) heart failure; J96.21 Acute and chronic respiratory failure with hypoxia; J96.22 Acute and chronic respiratory failure with hypercapnia; G93.41 Metabolic encephalopathy; R65.21 Severe sepsis with septic shock; K55.049 Acute infarction of large intestine, extent unspecified; J44.1 Chronic obstructive pulmonary disease with (acute) exacerbation; N18.4 Chronic kidney disease, stage 4 (severe); I13.0 Hypertensive heart and chronic kidney disease with heart failure and stage 1 through stage 4 chronic kidney disease, or unspecified chronic kidney disease; N17.9 Acute kidney failure, unspecified; I48.20 Chronic atrial fibrillation, unspecified; E87.0 Hyperosmolality and hypernatremia; Z68.41 Body mass index [BMI] 40.0-44.9, adult; D62 Acute posthemorrhagic anemia; K56.7 Ileus, unspecified; K55.9 Vascular disorder of intestine, unspecified; K55.1 Chronic vascular disorders of intestine; G72.81 Critical illness myopathy; E87.5 Hyperkalemia; I71.40 Abdominal aortic aneurysm, without rupture, unspecified; E66.01 Morbid (severe) obesity due to excess calories; F17.210 Nicotine dependence, cigarettes, uncomplicated; D63.1 Anemia in chronic kidney disease; E78.5 Hyperlipidemia, unspecified; I73.9 Peripheral vascular disease, unspecified; Z98.890 Other specified postprocedural states; Z79.01 Long term (current) use of anticoagulants; Z95.2 Presence of prosthetic heart valve; Z79.51 Long term (current) use of inhaled steroids; Z79.899 Other long term (current) drug therapy; Z79.2 Long term (current) use of antibiotics; M79.81 Nontraumatic hematoma of soft tissue; I95.9 Hypotension, unspecified; K63.89 Other specified diseases of intestine; I87.8 Other specified disorders of veins; G47.33 Obstructive sleep apnea (adult) (pediatric); I48.0 Paroxysmal atrial fibrillation
CPT/HCPCS: 36415; 36416; 36430; 36600; 51702; 71045; 71260; 74019; 74176; 74177; 76705; 80048; 80053; 80061; 80076; 80202; 81001; 82274; 82728; 82805; 83540; 83605; 83735; 83880; 84100; 84145; 84443; 84484; 85025; 85046; 85610; 85730; 86850; 86900; 86901; 87040; 87070; 87076; 87081; 87103; 87205; 88307; 93005; 93010; 93306; 94002; 94003; 94150; 94640; 94660; 94760; 94762; 96365; 97139; A4649; C1713; C1776; C9113; J0283; J0360; J0612; J0613; J1642; J1644; J1650; J1720; J1815; J1940; J2060; J2185; J2250; J2272; J2543; J2704; J2765; J2916; J2920; J3010; J3370; J3411; J3430; J3475; J3490; J7030; J7050; J7070; J7120; J7512; J7620; P9016; P9045; P9047; P9059; Q0163; Q9967

== ENCOUNTER 2023-02-22 11:41 | Inpatient (IN) | payer OTHER ==
[2023-02-22 11:49] VITALS: BMI 40.5
[2023-02-22] MEDS ORDERED: Morphine 4 MG/ML VIAL SLOW IVP PRN (11:53)
[2023-02-22] MEDS ORDERED: Lorazepam 2 MG/ML VIAL SLOW IVP PRN (11:54)
[2023-02-22] MEDS ORDERED: Bisacodyl 10 MG SUPP PR PRN (11:55)
[2023-02-22] MEDS ORDERED: Acetaminophen 650 MG Suppository PR PRN (12:00)
[2023-02-22] MEDS ORDERED: diphenhydrAMINE 50 MG/ML VIAL IVP PRN (12:00)
[2023-02-22] MEDS ORDERED: Scopolamine 1.5 mg/72 hour Patch TOP PRN (12:00)
[2023-02-22] MEDS ORDERED: Lorazepam 2 MG/ML VIAL SLOW IVP SCH ×2 (12:00→16:00)
[2023-02-22] MEDS ORDERED: Morphine 4 MG/ML VIAL SLOW IVP SCH ×2 (12:00→20:00)
[2023-02-22] MEDS ORDERED: Ondansetron PF 4 MG/2 ML Vial IVP PRN (12:00)
[2023-02-22 13:16] VITALS: TEMP 102.3
[2023-02-22 13:34] VITALS: BP 71/56
== END 2023-02-22 13:40 | disposition expired | DRG 951 ==
LOC: CSHIMCU 11:41
PROVIDERS: ADMIT Family Medicine; ATTEND Family Medicine
DX: Z51.5 Encounter for palliative care (principal); J96.01 Acute respiratory failure with hypoxia; J96.02 Acute respiratory failure with hypercapnia; A41.9 Sepsis, unspecified organism; R65.21 Severe sepsis with septic shock; I50.33 Acute on chronic diastolic (congestive) heart failure; J44.1 Chronic obstructive pulmonary disease with (acute) exacerbation; K55.1 Chronic vascular disorders of intestine; I48.20 Chronic atrial fibrillation, unspecified; N17.9 Acute kidney failure, unspecified; Z68.41 Body mass index [BMI] 40.0-44.9, adult; D63.1 Anemia in chronic kidney disease; E66.01 Morbid (severe) obesity due to excess calories; N18.32 Chronic kidney disease, stage 3b; Z95.2 Presence of prosthetic heart valve; Z79.01 Long term (current) use of anticoagulants
CPT/HCPCS: 94760; J2060; J2270